=== PATIENT | female | born 1970 | race African-American/Black ===

== ENCOUNTER 2020-11-16 20:13 | IRF | payer BC, MEDICAID, SELFPAY ==
--- NOTE | ~2020-11-16 | US_ITS ---
EXAMINATION: US renal BI DATE: 11/27/2020 08:57 INDICATION: Acute renal failure. TECHNIQUE: Multiple ultrasound grayscale images of the kidneys were obtained. COMPARISON: CT abdomen and pelvis 03/07/2014 FINDINGS: The right kidney measures 12.8 x 6.3 x 5.6 cm. The left kidney measures 12.1 x 6.1 x 5.9 cm. The kidn eys demonstrate normal parenchymal echogenicity. There is no hydronephrosis. The bladder is normal. IMPRESSION: 1. Normal kidneys. No hydronephrosis. Reviewed, dictated and finalized at location A. GER FOOD
--- NOTE | ~2020-11-16 | XR_ITS ---
XR chest 1V portable DATE: 11/27/2020 08:32 INDICATION: Shortness of breath TECHNIQUE: Portable upright AP chest on November 27, 2020 at 0827 hours COMPARISON: AP and lateral chest on November 26, 2020 FINDINGS: There is suggestion patchy infiltrates overlying both upper and lower lung zones. No pleural effusion. No pneumothorax. Borderline or increased heart size. Surgical clips overlie the right upper quadrant, consistent with cholecystectomy. IMPRESSION: Bilateral upper and lower lung field infiltrates; diffusion diagnosis includes pneumonia and pulmonary edema. Reviewed, dictated and finalized at location A. ATE SECRETARY IMPRESSION: Bilateral upper and lower lung field infiltrates; diffusion diagnos is includes pneumonia and pulmonary edema.
--- NOTE | ~2020-11-16 | XR_ITS ---
XR chest 2V DATE: 11/26/2020 11:54 INDICATION: Fever, sore throat TECHNIQUE: AP and lateral views COMPARISON: 03/19/2014 2 view chest FINDINGS: Heart size is not optimally evaluated on AP projection but appears borderline.. No pulmonary infiltrate or consolidation, pulmonary vascular congestion, pleural effusion or pneumoth orax is detected. Status post cholecystectomy. IMPRESSION: No active pulmonary disease Reviewed, dictated and finalized at location A. RE WINDER HAND IMPRESSION: No active pulmonary disease
--- NOTE | 2020-11-16 19:49 | ADMGEN ---
This patient, Delisa Calderon, was admitted to [facility] Room 224-02 at 1912. Patient/family oriented to hospital policies and general routines including ID bracelet, bed and alarms, visiting hours, pain management, procedures, bathroom and other care routines, personal items, smoking policy, room service/diet, and visiting hours. Information on how to activate the Rapid Response Team has been discussed. Patient/Family are encouraged to report perceived risks to care and to ask questions if they do not understand what they are told or what they should do.
[2020-11-16 20:00] VITALS: BP 144/78; PULSE 97; RESP 18; TEMP 36.9; O2SAT 97; BMI 35.5
[2020-11-16] MEDS: oxyCODONE HCL (*CRX) 5 MG TAB IR 10 MG PO (21:56)
[2020-11-16 22:00] VITALS: BP 149/68; PULSE 97; RESP 16; TEMP 36.8; O2SAT 95
[2020-11-16 22:11] LABS: Glucose Point of Care 146 (65-105)
[2020-11-16] MEDS: MELATONIN 5 MG TABLET 10 MG PO (22:41)
[2020-11-16] MEDS: GABAPENTIN 300 MG CAPSULE 600 MG PO (22:41)
[2020-11-16 22:42] VITALS: PULSE 80
[2020-11-16] MEDS: AMITRIPTYLINE HCL 25 MG TABLET PO (22:42)
[2020-11-16] MEDS: carvediloL 6.25 MG TABLET PO (22:42)
[2020-11-16] MEDS: ATORVASTATIN 20 MG TABLET PO (22:42)
[2020-11-16] MEDS: INSULIN GLARGINE (*BKC) 100 UNITS/ML 10 UNITS SUB-Q (22:43)
[2020-11-16] MEDS: LINEZOLID 600 MG TABLET PO (22:43)
[2020-11-17] MEDS: oxyCODONE HCL (*CRX) 5 MG TAB IR 10 MG PO ×2 (05:22→15:29)
[2020-11-17 05:41] LABS: Basophils Percent Auto 0.1 % (0.2-1.2); Eosinophils Percent Auto 0.5 % (0-4.4); Hematocrit 28.1 % (37.0-47.0); Hemoglobin 9.1 g/dL (12.0-15.0); Immature Granulocyte Absolute 0.05 K/mm3 (0.00-0.031); Immature Granulocyte Percent A 0.6 % (0-0.5); Lymphocytes Absolute Auto 1.13 K/mm3 (0.9-3.2); Lymphocytes Percent Auto 13.3 % (18.3-44.2); Mean Corpuscular HGB Conc 32.4 g/dl (32-36); Mean Corpuscular Hemoglobin 28.6 pg (26-34); Mean Corpuscular Volume 88.4 fl (80-100); Mean Platelet Volume 8.8 fl (7.4-10.4); Monocytes Absolute Auto 1.1 K/mm3 (0.1-0.6); Monocytes Percent Auto 12.6 % (2.6-8.5); Neutrophils Absolute Auto 6.2 K/mm3 (1.3-6.7); Neutrophils Percent Auto 72.9 % (45.5-73.1); Platelet Count Result 342 k/mm3 (150-375); Red Blood Count 3.18 M/mm3 (4.2-5.4); Red Cell Distribution Width 15.2 % (11.5-14.5); White Blood Count 8.5 K/mm3 (4.5-10.0)
[2020-11-17 05:51] LABS: Anion Gap 5 mmol/L (8-16); Blood Urea Nitrogen 8 mg/dL (7-17); Calcium 8.3 mg/dL (8.4-10.2); Carbon Dioxide 29 mmol/L (22-30); Chloride 101 mmol/L (98-107); Estimated CRCL calculation 120 ml/min; Estimated Glomerular Filt Rate > 60; Glucose 111 mg/dL (65-105); Potassium 4.3 mmol/L (3.4-5.0); Sodium 135 mmol/L (137-145)
[2020-11-17 06:00] VITALS: BP 147/74; PULSE 93; RESP 18; TEMP 36.9; O2SAT 95
[2020-11-17 06:34] LABS: Glucose Point of Care 113 (65-105)
[2020-11-17] MEDS: INSULIN ASPART (*BKC) 100 UNITS/ML 15 UNITS SUB-Q (09:42)
[2020-11-17] MEDS: amLODIPine BESYLATE 5 MG TABLET 10 MG PO (09:43)
[2020-11-17 09:44] VITALS: PULSE 93
[2020-11-17] MEDS: GABAPENTIN 300 MG CAPSULE 600 MG PO ×4 (09:44→20:01)
[2020-11-17] MEDS: METOPROLOL SUCCINATE EXT REL 50 MG TABCR PO (09:44)
[2020-11-17] MEDS: LINEZOLID 600 MG TABLET PO ×2 (09:44→20:02)
[2020-11-17] MEDS: hydroCHLOROthiazide 12.5 MG CAPSULE PO (09:44)
[2020-11-17] MEDS: MAGNESIUM OXIDE 400 MG TABLET 800 MG PO ×2 (09:45→17:22)
[2020-11-17] MEDS: ISOSORBIDE MONONITRATE 60 MG TAB.ER.24H PO (09:45)
--- NOTE | 2020-11-17 09:45 | WPDREHABHP ---
H&P: HPI History of Present Illness Date/Time: 11/17/20 09:45 Chief Complaint: left [id number] amputation Narrative: HISTORY OF PRESENT ILLNESS:50 years old right-handed female has been admitted to rehab floor for the primary rehab impairment category of amputation of lower extremity with the etiological diagnosis of gangrene of toes of the left foot in addition to the comorbid conditions of 1. Hypertension 2. Diabetes mellitus 3. Obstructive sleep apnea 4. Peripheral arterial disease in addition to the history of right to left femoral to femoral artery bypass graft with 6mm ringed PTFE graft done in May 2020 5. Atrial fibrillation 6. Status post cardiac catheterization with stenting of the coronary artery 7. DVT 8. Hyperlipidemia 9. COPD 10. Rheumatoid arthritis 11. Bronchial asthma 12. Peripheral neuropathy 13. Gastritis and 14 cervical can. # patient was examined [id number] on November 17, 2024 at 9:00 a.m. # history and physical exam: the patient is 50 years old right-handed female with history of multiple medical problems as outlined above particularly hypertension, diabetes mellitus, obstructive sleep apnea, peripheral arterial disease, is status post right to left femoral to femoral bypass graft, cardiac dysrhythmia, with atrial fibrillation, cardiac catheterization and stenting, DVT, hyperlipidemia, myocardial infarction, COPD, rheumatoid arthritis, bronchial asthma, peripheral neuropathy, cervical cancer, TIA, and gastritis. She was discharge from the hospital on October 04, 2020 after diagnosis of acute hypoxemic respiratory failure, hypertensive urgency, migraine, and acute Frank's palsy that is both migraine and Frank's palsy had same time of onset. She was prescribed steroids and had significant uncontrolled blood sugar. The patient presented to emergency department of [facility] on October 08, 2020 with altered mental status. The patient stated she had been unwell and not acting right for 2 to 3 days previously and had to force her out of bed to come to the hospital. She was unable to stand due to pain and pressure in her left lower extremity. She also had continued to have migraines since her discharge on October 04, 2020 despite never having prior history of migraines. She was febrile at 102.6 and tachycardic at 140 beats per minute on arrival to the emergency room department. Ultrasound revealed karrie graft fluid in the right femoral anastomosis. CT of the abdomen and pelvis showed the femoral to femoral bypass graft with fluid stranding and locules of air About the right side of the graft. I small amount of stranding was seen in the left side of the graft as well. She was positive for Staph aureus non MRSA in 2 blood cultures. Infectious disease, vascular surgery, pulmonology, nephrology were consulted. The patient underwent a resection of the femoral to femoral bypass graft with bilateral femoral artery patch angioplasty on 10/17 2020. [id number] the patient was examined by vascular surgery and found to have break done of the left groin and hematoma, hematoma was evacuated by vascular surgery and a wound VAC was placed. On November 02, 2020 the patient was seen again by vascular surgeon and was noted to have foul-smelling wound and gangrenous left toes. She underwent surgical debridement of the left groin wound on the same day. The patient groin wound shows good granulation all necrotic tissue has been debrided. Wound VAC was changed on October 31, 2020. Patient ultimately underwent a left [id number] amputation on November 07, [address] Bush. Infectious Disease followed the patient throughout her stay and patient is currently on Rocephin that is 2 g and zyvox daily , present day 12 . Her leukocytosis has resolved. Nephrology following the patient for acute kidney injury and creatinine has down trended to current level of 0.9. Pulmonology was consulted for acute respiratory failure the patient r
[2020-11-17] MEDS: DIVALPROEX SODIUM ER 500 MG TAB.24H PO ×2 (09:46→17:24)
[2020-11-17 09:47] VITALS: PULSE 93
[2020-11-17] MEDS: lisinopriL 20 MG TABLET 40 MG PO (09:47)
[2020-11-17] MEDS: carvediloL 6.25 MG TABLET PO ×2 (09:47→20:02)
[2020-11-17] MEDS: FENOFIBRATE 160 MG TABLET PO (09:47)
[2020-11-17] MEDS: PANTOPRAZOLE 40 MG TABLET PO ×2 (09:47→17:23)
[2020-11-17] MEDS: ASPIRIN 81 MG ENTERIC TABLET PO (10:06)
--- NOTE | 2020-11-17 11:11 | PCOTNOTE ---
Initiated OT evaluation, but unable to complete entirely at this time as patient nauseated. Patient just had wound vac placed, dressings changed, and took morning medication. Patient requested to rest for a while. Will complete later.
[2020-11-17 11:56] LABS: Glucose Point of Care 64 (65-105)
[2020-11-17] MEDS: METOCLOPRAMIDE HCL INJ 10 MG/2 ML VIAL 5 MG IV PUSH ×2 (12:18→17:20)
[2020-11-17 14:00] VITALS: BP 142/72; PULSE 82; RESP 20; TEMP 35.9; O2SAT 100
[2020-11-17 14:03] VITALS: BMI 35.5
--- NOTE | 2020-11-17 14:26 | PCNSR ---
On 11/17/20, the student, Yuliya Mccarty, provided care and completed [facility] documentation on this patient. I have reviewed the student's documentation and agree with the findings.
[2020-11-17 17:11] LABS: Glucose Point of Care 155 (65-105)
[2020-11-17 20:02] VITALS: PULSE 88
[2020-11-17] MEDS: AMITRIPTYLINE HCL 25 MG TABLET PO (20:02)
[2020-11-17] MEDS: ATORVASTATIN 20 MG TABLET PO (20:02)
[2020-11-17] MEDS: INSULIN GLARGINE (*BKC) 100 UNITS/ML 10 UNITS SUB-Q (20:06)
[2020-11-17 20:10] LABS: Glucose Point of Care 217 (65-105)
[2020-11-17 22:00] VITALS: BP 166/80; PULSE 92; RESP 18; TEMP 36.6; O2SAT 100
[2020-11-18] VITALS (7 sets, daily range): BP systolic 122–142; BP diastolic 65–73; PULSE 84–91; RESP 18–20; TEMP 36.3–37.2; O2SAT 96–97; BMI 35.5
[2020-11-18] MEDS: oxyCODONE HCL (*CRX) 5 MG TAB IR 10 MG PO ×4 (03:04→23:17)
[2020-11-18 05:40] LABS: Glucose Point of Care 127 (65-105)
[2020-11-18] MEDS: METOCLOPRAMIDE HCL INJ 10 MG/2 ML VIAL 5 MG IV PUSH ×5 (06:10→23:18)
[2020-11-18 06:12] LABS: Magnesium 1.6 mg/dL (1.6-2.3)
[2020-11-18 06:34] LABS: Add Urine Microscopic? YES; Appearance Urine Cloudy (Clear); Bacteria Urine Trace /hpf; Bilirubin Urine Negative (Negative); Blood Urine 2+ (Negative); Color Urine Straw (Yellow); Glucose Urine UA Negative (Negative); Ketones Urine Negative (Negative); Leukocyte Esterase Ur Negative LEU/UL (Negative); Mucus Urine Rare /lpf; Nitrate Urine Negative (Negative); Protein Urine 1+ mg/dL (Negative); Specific Grav Ur 1.009 (1.001-1.035); Squamous Epithelial Cell Urine Rare /hpf (Few); Urobilinogen Urine Negative mg/dL (<2.0); WBC Urine 0-3 /hpf
[2020-11-18] MEDS: amLODIPine BESYLATE 5 MG TABLET 10 MG PO (09:09)
[2020-11-18] MEDS: MAGNESIUM OXIDE 400 MG TABLET 800 MG PO ×2 (09:09→17:29)
[2020-11-18] MEDS: GABAPENTIN 300 MG CAPSULE 600 MG PO ×4 (09:10→21:24)
[2020-11-18] MEDS: DOCUSATE SODIUM 100 MG CAPSULE PO ×2 (09:11→17:28)
[2020-11-18] MEDS: DIVALPROEX SODIUM ER 500 MG TAB.24H PO ×2 (09:11→17:29)
[2020-11-18] MEDS: LINEZOLID 600 MG TABLET PO ×2 (09:11→21:24)
[2020-11-18] MEDS: OMEGA 3 POLYUNSAT FATTY ACIDS 1 GM CAP PO (09:11)
[2020-11-18] MEDS: ASPIRIN 81 MG ENTERIC TABLET PO (09:11)
[2020-11-18] MEDS: FENOFIBRATE 160 MG TABLET PO (09:12)
[2020-11-18] MEDS: carvediloL 6.25 MG TABLET PO ×2 (09:12→21:22)
[2020-11-18] MEDS: hydroCHLOROthiazide 12.5 MG CAPSULE PO (09:12)
[2020-11-18] MEDS: PANTOPRAZOLE 40 MG TABLET PO ×2 (09:13→17:30)
[2020-11-18] MEDS: lisinopriL 20 MG TABLET 40 MG PO (09:13)
[2020-11-18] MEDS: ISOSORBIDE MONONITRATE 60 MG TAB.ER.24H PO (09:13)
[2020-11-18] MEDS: METOPROLOL SUCCINATE EXT REL 50 MG TABCR PO (09:13)
[2020-11-18 11:56] LABS: Glucose Point of Care 161 (65-105)
--- NOTE | 2020-11-18 12:17 | RPD ---
INDIVIDUALIZED PLAN OF CARE FOR Delisa Calderon Brief Synthesis of Pre-Admission Screen, Post-Admission Evaluation and Therapy Evaluations: The patient presents to rehab with Gangrene of toes of left foot. Comorbidities include Gangrene, non-healing wound of left groin, graft site infection, MARIAM, rhabdomyolysis, staphylococcus aureus bacteremia, hypoxia, diabetes with peripheral neuropathy, PVD, PARIS, PAD, HLD, a-fib, arrhythmia, COPD, rheumatoid arthritis, asthma, gastritis, migraine, altered mental status, pain, fevers, tachycardia, respiratory failure, leukocytosis, acute kidney injury, acute blood loss anemia. The patient requires physician services for medical oversight, management of post-op complications in the setting of present comorbidities, management of diabetes mellitus diagnosis, and wound care, infection control, and pain management. Post-op complications have included leukocytosis, post-operative pain, infection, nonhealing wound, hyperglycemia, MARIAM. The patient requires nursing services for anticoagulation therapy, diabetes training, DVT prophylactics, IV administration, infection protection, medication management and education, pressure relief, and wound care. Deficits include: ADLs, Balance, Endurance, Family Training/Education, Mobility, Pain Management, ROM, Safety, Strength, Transfers. Computer Security Coordinator/Case Management for: Discharge Planning and Patient/Family Counseling Physical Therapy: 5 days per week for 90 minutes. Treatments may include: Therapeutic Exercise, Gait Training, Neuromuscular Re-education, Transfer Training, Community Reintegration, Bed Mobility, Patient/Family Education, Wheelchair Mobility Group Therapy/Concurrent Therapy Rationales: -Improve attention span during functional activities in a distracted environment. -Enhance problem solving and/or adequate judgment skills during functional activities in a distracted environment. -Promote increased safety awareness in a distracted environment to reduce fall risk with functional tasks, transfers, and ambulation to allow a more safe, self-sufficient return to the home environment. -Improve dynamic balance skills to promote safety and independence with functional activities in a distracted environment for maximum gain. Occupational Therapy: 5 days per week for 90 minutes. Treatments may include: Therapeutic Exercise, Therapeutic Activity, Cognitive Training, Self-Care Transfer Training, Community Reintegration, Home Management, Patient/Family Education, Wheelchair Mobility Training, Energy Conservation Training Group Therapy/Concurrent Therapy Rationales: -Allow therapist to observe and teach generalization and carry-over of skills learned in individual therapy. -Enhance problem solving and sequencing skills during therapeutic activities in a distracted environment. -Promote increased safety awareness in a realistic setting to reduce fall risk with functional tasks due to visual and verbal distractions. -Increase functional level with ADLs, ADL transfers and use of adaptive equipment through therapeutic activities with others while promoting safety to allow a more safe, self-sufficient return home. Group Therapy/Concurrent Therapy - Rationale: -Allow therapist to observe and teach generalization and carry-over of skills learned in individual therapy. -Improve comprehension skills with complex or abstract ideas through discussion in a realistic setting. -Enhance problem solving skills with complex issues during activities in a distracted environment. -Promote increased memory skills and concentration in a distracted environment for a safe transition home. -Improve attention and focus with language/communication skills in a realistic and supportive therapeutic setting. -Allow for practice of expression of basic needs and ideas through functional activities with others. Medical Prognosis: Good Anticipated Length of Stay: 12 days Rehab Goals: Eating Goal: 06-Ind
--- NOTE | 2020-11-18 12:17 | PCNFU ---
Nutrition Follow-Up Complete: Inadequate oral intake related to constant nausea as evidenced by consumption of 25% or less of meals. Goal: Patient to meet estimated nutritional needs. Patient ate 100% of breakfast this morning. She is still working towards goal. Pt current nutrition is Diabetic Consistent Carbohydrate Diet. Last recorded weight is 103 kg. Stable weight since admission. Bowel Motility: + BM 11/18 Labs Reviewed: Hgb 12.6, Hct 38.5, BUN 25 Meds Noted: Albuterol, Lorazepam, Norvasc, Novolog, Lipitor, Lantus, Coreg, Imdur, Colace, Prinivil, Lovaza, Protonix Additional Notes: Spoke with patient today. She is doing significantly better than yesterday. She was able to eat 100% of her breakfast this morning and on her way to eating 100% of her lunch as well. She was given Reglan to help with nausea and it is has worked wonders for her. She wants to try Glucerna with lunch providing an additional 220 calories and 10 grams of protein to help meet her nutritional needs when she has a decreased appetite. Monitor patient's labs, medications, weight, and oral intake every 5 days.
--- NOTE | 2020-11-18 12:48 | PCNSR ---
On 11/18/20, the student, Yuliya Mccarty, provided care and completed [facility] documentation on this patient. I have reviewed the student's documentation and agree with the findings.
[2020-11-18 16:53] LABS: Glucose Point of Care 165 (65-105)
[2020-11-18] MEDS: INSULIN ASPART (*BKC) 100 UNITS/ML SUB-Q (17:26)
[2020-11-18] MEDS: ATORVASTATIN 20 MG TABLET PO (21:23)
[2020-11-18] MEDS: AMITRIPTYLINE HCL 25 MG TABLET PO (21:24)
[2020-11-18] MEDS: INSULIN GLARGINE (*BKC) 100 UNITS/ML 10 UNITS SUB-Q (21:27)
[2020-11-18 21:45] LABS: Glucose Point of Care 152 (65-105)
[2020-11-19] VITALS (7 sets, daily range): BP systolic 106–122; BP diastolic 65–72; PULSE 82–87; RESP 18; TEMP 36.1–36.9; O2SAT 96–98
[2020-11-19] MEDS: METOCLOPRAMIDE HCL INJ 10 MG/2 ML VIAL 5 MG IV PUSH ×3 (06:22→17:01)
[2020-11-19 07:02] LABS: Glucose Point of Care 138 (65-105)
[2020-11-19] MEDS: INSULIN ASPART (*BKC) 100 UNITS/ML SUB-Q ×3 (09:01→16:45)
[2020-11-19] MEDS: amLODIPine BESYLATE 5 MG TABLET 10 MG PO (09:04)
[2020-11-19] MEDS: ASPIRIN 81 MG ENTERIC TABLET PO (09:05)
[2020-11-19] MEDS: carvediloL 6.25 MG TABLET PO ×2 (09:05→20:09)
[2020-11-19] MEDS: DOCUSATE SODIUM 100 MG CAPSULE PO (09:06)
[2020-11-19] MEDS: DIVALPROEX SODIUM ER 500 MG TAB.24H PO ×2 (09:06→16:51)
[2020-11-19] MEDS: FENOFIBRATE 160 MG TABLET PO (09:06)
[2020-11-19] MEDS: GABAPENTIN 300 MG CAPSULE 600 MG PO ×4 (09:06→20:03)
[2020-11-19] MEDS: hydroCHLOROthiazide 12.5 MG CAPSULE PO (09:07)
[2020-11-19] MEDS: MAGNESIUM OXIDE 400 MG TABLET 800 MG PO ×2 (09:07→16:50)
[2020-11-19] MEDS: lisinopriL 20 MG TABLET 40 MG PO (09:07)
[2020-11-19] MEDS: ISOSORBIDE MONONITRATE 60 MG TAB.ER.24H PO (09:07)
[2020-11-19] MEDS: METOPROLOL SUCCINATE EXT REL 50 MG TABCR PO (09:07)
[2020-11-19] MEDS: LINEZOLID 600 MG TABLET PO ×2 (09:07→20:05)
[2020-11-19] MEDS: OMEGA 3 POLYUNSAT FATTY ACIDS 1 GM CAP PO (09:08)
[2020-11-19] MEDS: PANTOPRAZOLE 40 MG TABLET PO ×2 (09:08→16:50)
[2020-11-19] MEDS: oxyCODONE HCL (*CRX) 5 MG TAB IR 10 MG PO ×2 (09:27→16:56)
[2020-11-19 12:02] LABS: Glucose Point of Care 133 (65-105)
--- NOTE | 2020-11-19 14:33 | WPDNEURORHBP ---
Subjective Date/time seen: 11/19/20 14:33 50 years old right-handed female with left lower extremity amputation for the gangrene of the left foot in addition to hypertension, diabetes mellitus, obstructive sleep apnea, peripheral arterial disease, and history of right to left femoral to femoral artery bypass graft, atrial fibrillation,, history of coronary artery catheterization and stenting , COPD , rheumatoid arthritis bronchial asthma, peripheral neuropathy and gastritis remains actively involved in the therapy much more pleasant now and more cooperative and more understanding and definitely in not pain, blood sugar 133, remains afebrile pulse 84 respiration 18 pulse ox 96 on room air Review of Systems Review of Systems: All systems reviewed & are unremarkable except as noted in HPI and below Exam Const: General: cooperative, comfortable and no acute distress Nutritional Appearance: overweight Orientation/consciousness: patient oriented x3 Limitations: physical limitations HENMT: Head: normocephalic Ears: hearing grossly normal bilaterally General nose exam: Normal external nose present and No nasal discharge present Face and sinus: normal facial exam Eyes: General: appearance normal, both eyes and all related structures Neck: Neck: full ROM and no lymphadenopathy Resp: Effort & Inspection: normal respiratory effort Auscultation: clear to auscultation bilaterally Cardio: Jugular venous distension: no JVD Rate: regular rate Rhythm: regular rhythm GI: Auscultation: normal bowel sounds Skin: General skin exam: no rashes or lesions noted Wounds: wounds noted Neuro: General: patient oriented x3 Cranial nerves: Yes CN's II-XII intact bilaterally Cognition (Neuro): normal cognition Gait exam (Neuro): Assisted gait required Motor exam (neuro): 5/5 motor strength present throughout and Abnormal motor strength present ( left lower extremity) Sensory Exam: Sensory deficit (Neuro) Deep tendon reflexes (DTR's): Right triceps reflex intensity grade: 1+, Left triceps reflex intensity grade: 1+, Rt Biceps (C5, C6): 1+, Left biceps reflex intensity grade: 1+, Right brachioradialis reflex intensity grade: 1+, Left brachioradialis reflex intensity grade: 1+, Right patellar reflex intensity grade: 1+ and Left patellar reflex intensity grade: 1+ Objective Data Vital Signs Vital Signs: Vital Signs - 24 hr 11/18/20 20:00 11/18/20 21:22 11/18/20 22:00 Temperature 36.9 C Pulse Rate 84 84 88 Respiratory Rate 20 18 Blood Pressure 142/71 H Pulse Oximetry 97 96 11/19/20 05:04 11/19/20 08:00 11/19/20 09:05 Temperature 36.3 C L Pulse Rate 84 84 84 Respiratory Rate 18 18 Blood Pressure 122/72 Pulse Oximetry 96 96 11/19/20 09:07 Temperature Pulse Rate 84 Respiratory Rate Blood Pressure Pulse Oximetry Intake/Output Intake/Output: Intake & Output 11/16/20 11/17/20 11/18/20 11/19/20 23:59 23:59 23:59 23:59 Intake Total 1440 1240 870 Output Total 2550 1300 1100 [facility] -1110 -60 -230 Meds/Results Medications: Active Medications Generic Name Dose Route Start Last Admin Trade Name Freq PRN Reason Stop Dose Admin Albuterol 1 puff 11/17/20 01:51 Albuterol Sulfate (*Sp) Aerosol 1 Puff INHALATION Q4HRT PRN Shortness Of Breath Albuterol/Ipratropium 1 puff 11/17/20 04:40 Albuterol/Ipratropium (*Sp) 4 Gm Respimat INHALATION QIDRT PRN Shortness Of Breath Amitriptyline HCl 25 mg 11/16/20 21:40 11/18/20 21:24 Amitriptyline Hcl 25 Mg Tablet PO 25 mg HS YUKI Administration Amlodipine Besylate 10 mg 11/17/20 09:00 11/19/20 09:04 Amlodipine Besylate 5 Mg Tablet PO 10 mg DAILY YUKI Administration Aspirin 81 mg 11/17/20 09:00 11/19/20 09:05 Aspirin 81 Mg Enteric Tablet PO 81 mg DAILY YUKI Administration Atorvastatin Calcium 20 mg 11/16/20 21:40 11/18/20 21:23 Atorvastatin 20 Mg Tablet PO 20 mg HS YUKI Administration Carvedilol 6.2
[2020-11-19 16:46] LABS: Glucose Point of Care 115 (65-105)
[2020-11-19] MEDS: ATORVASTATIN 20 MG TABLET PO (20:04)
[2020-11-19] MEDS: AMITRIPTYLINE HCL 25 MG TABLET PO (20:04)
[2020-11-19] MEDS: INSULIN GLARGINE (*BKC) 100 UNITS/ML 10 UNITS SUB-Q (20:10)
[2020-11-19 21:44] LABS: Glucose Point of Care 118 (65-105)
[2020-11-20] MEDS: METOCLOPRAMIDE HCL INJ 10 MG/2 ML VIAL 5 MG IV PUSH ×4 (00:15→17:51)
[2020-11-20 04:37] VITALS: BP 126/70; PULSE 91; RESP 18; TEMP 36.5; O2SAT 97
[2020-11-20 06:33] LABS: Glucose Point of Care 110 (65-105)
[2020-11-20] MEDS: oxyCODONE HCL (*CRX) 5 MG TAB IR 10 MG PO ×2 (06:54→16:19)
[2020-11-20] MEDS: amLODIPine BESYLATE 5 MG TABLET 10 MG PO (08:45)
[2020-11-20] MEDS: INSULIN ASPART (*BKC) 100 UNITS/ML SUB-Q ×3 (08:45→17:47)
[2020-11-20] MEDS: ASPIRIN 81 MG ENTERIC TABLET PO (08:46)
[2020-11-20 08:50] VITALS: PULSE 91
[2020-11-20] MEDS: carvediloL 6.25 MG TABLET PO ×2 (08:50→20:45)
[2020-11-20] MEDS: GABAPENTIN 300 MG CAPSULE 600 MG PO ×4 (08:52→20:45)
[2020-11-20] MEDS: DIVALPROEX SODIUM ER 500 MG TAB.24H PO ×2 (08:52→17:49)
[2020-11-20] MEDS: FENOFIBRATE 160 MG TABLET PO (08:52)
[2020-11-20] MEDS: MAGNESIUM OXIDE 400 MG TABLET 800 MG PO ×2 (08:53→17:50)
[2020-11-20] MEDS: hydroCHLOROthiazide 12.5 MG CAPSULE PO (08:53)
[2020-11-20] MEDS: LINEZOLID 600 MG TABLET PO ×2 (08:53→20:45)
[2020-11-20] MEDS: ISOSORBIDE MONONITRATE 60 MG TAB.ER.24H PO (08:53)
[2020-11-20] MEDS: lisinopriL 20 MG TABLET 40 MG PO (08:53)
[2020-11-20 08:54] VITALS: PULSE 91
[2020-11-20] MEDS: METOPROLOL SUCCINATE EXT REL 50 MG TABCR PO (08:54)
[2020-11-20] MEDS: PANTOPRAZOLE 40 MG TABLET PO ×2 (08:54→17:52)
[2020-11-20] MEDS: OMEGA 3 POLYUNSAT FATTY ACIDS 1 GM CAP PO (08:54)
[2020-11-20 13:43] LABS: Glucose Point of Care 101 (65-105)
[2020-11-20 14:00] VITALS: BP 116/64; PULSE 94; RESP 20; TEMP 36.5; O2SAT 95
[2020-11-20 17:20] LABS: Glucose Point of Care 145 (65-105)
[2020-11-20 20:45] VITALS: PULSE 88
[2020-11-20] MEDS: AMITRIPTYLINE HCL 25 MG TABLET PO (20:45)
[2020-11-20] MEDS: INSULIN GLARGINE (*BKC) 100 UNITS/ML 10 UNITS SUB-Q (20:46)
[2020-11-20] MEDS: ATORVASTATIN 20 MG TABLET PO (20:46)
[2020-11-20 20:55] LABS: Glucose Point of Care 125 (65-105)
[2020-11-20 21:51] VITALS: BP 151/76; PULSE 92; RESP 18; TEMP 36.5; O2SAT 98
[2020-11-21] MEDS: METOCLOPRAMIDE HCL INJ 10 MG/2 ML VIAL 5 MG IV PUSH ×5 (00:01→23:31)
[2020-11-21 06:00] VITALS: BP 124/59; PULSE 91; RESP 16; TEMP 36.2; O2SAT 94
[2020-11-21 06:03] LABS: Glucose Point of Care 141 (65-105)
[2020-11-21 08:00] VITALS: PULSE 91; RESP 16; O2SAT 94
[2020-11-21] MEDS: amLODIPine BESYLATE 5 MG TABLET 10 MG PO (08:18)
[2020-11-21] MEDS: ASPIRIN 81 MG ENTERIC TABLET PO (08:18)
[2020-11-21 08:19] VITALS: PULSE 91
[2020-11-21] MEDS: METOPROLOL SUCCINATE EXT REL 50 MG TABCR PO (08:19)
[2020-11-21] MEDS: MAGNESIUM OXIDE 400 MG TABLET 800 MG PO ×2 (08:19→16:16)
[2020-11-21] MEDS: carvediloL 6.25 MG TABLET PO ×2 (08:19→21:55)
[2020-11-21] MEDS: LINEZOLID 600 MG TABLET PO ×2 (08:19→21:57)
[2020-11-21] MEDS: FENOFIBRATE 160 MG TABLET PO (08:20)
[2020-11-21] MEDS: GABAPENTIN 300 MG CAPSULE 600 MG PO ×4 (08:20→21:56)
[2020-11-21] MEDS: hydroCHLOROthiazide 12.5 MG CAPSULE PO (08:20)
[2020-11-21] MEDS: DIVALPROEX SODIUM ER 500 MG TAB.24H PO ×2 (08:21→16:16)
[2020-11-21] MEDS: lisinopriL 20 MG TABLET 40 MG PO (08:21)
[2020-11-21] MEDS: PANTOPRAZOLE 40 MG TABLET PO ×2 (08:21→16:17)
[2020-11-21] MEDS: ISOSORBIDE MONONITRATE 60 MG TAB.ER.24H PO (08:21)
[2020-11-21] MEDS: OMEGA 3 POLYUNSAT FATTY ACIDS 1 GM CAP PO (08:21)
[2020-11-21] MEDS: INSULIN ASPART (*BKC) 100 UNITS/ML SUB-Q ×3 (08:23→17:18)
[2020-11-21] MEDS: oxyCODONE HCL (*CRX) 5 MG TAB IR 10 MG PO ×3 (08:28→22:12)
--- NOTE | 2020-11-21 09:53 | WPDNEURORHBP ---
Subjective Date/time seen: 11/21/20 09:53 50 years old status post left below-knee amputation in addition to hypertension, diabetes mellitus, obstructive sleep apnea, peripheral arterial disease, atrial fibrillation, and left femoral to femoral artery bypass graft prior to this particular incident has remained afebrile temp 36.2? pulse 91 respirations 16 pulse ox 94 blood pressure 124/59, no changes in the medication, this morning Chika has been read distressed and is definitely looking better Review of Systems Review of Systems: All systems reviewed & are unremarkable except as noted in HPI and below Exam Const: General: cooperative and comfortable Nutritional Appearance: overweight Orientation/consciousness: patient oriented x3 Limitations: physical limitations HENMT: Ears: hearing grossly normal bilaterally General nose exam: Normal external nose present and No nasal discharge present Face and sinus: normal facial exam Mouth: Yes Normal oral and palatal mucosa present Eyes: General: appearance normal, both eyes and all related structures Neck: Neck: full ROM Resp: Effort & Inspection: normal respiratory effort Auscultation: clear to auscultation bilaterally Cardio: Jugular venous distension: no JVD Rhythm: abnormal rhythm GI: Auscultation: normal bowel sounds Skin: General skin exam: no rashes or lesions noted Wounds: wounds noted ( we dressed this morning looks better) Neuro: General: patient oriented x3 Cranial nerves: Yes CN's II-XII intact bilaterally Speech: normal speech Motor exam (neuro): 5/5 motor strength present throughout Extrem: General: full ROM Left lower extremity: full ROM Objective Data Vital Signs Vital Signs: Vital Signs - 24 hr 11/20/20 14:00 11/20/20 20:45 11/20/20 21:51 Temperature 36.5 C 36.5 C Pulse Rate 94 88 92 Respiratory Rate 20 18 Blood Pressure 116/64 151/76 H Pulse Oximetry 95 98 11/21/20 06:00 11/21/20 08:19 Temperature 36.2 C L Pulse Rate 91 91 Respiratory Rate 16 Blood Pressure 124/59 L Pulse Oximetry 94 Intake/Output Intake/Output: Intake & Output 11/18/20 11/19/20 11/20/20 11/21/20 23:59 23:59 23:59 23:59 Intake Total 1240 1930 3310 480 Output Total 1300 1100 2425 1500 Balance -60 830 885 -1020 Meds/Results Medications: Active Medications Generic Name Dose Route Start Last Admin Trade Name Freq PRN Reason Stop Dose Admin Albuterol 1 puff 11/17/20 01:51 Albuterol Sulfate (*Sp) Aerosol 1 Puff INHALATION Q4HRT PRN Shortness Of Breath Albuterol/Ipratropium 1 puff 11/17/20 04:40 Albuterol/Ipratropium (*Sp) 4 Gm Respimat INHALATION QIDRT PRN Shortness Of Breath Amitriptyline HCl 25 mg 11/16/20 21:40 11/20/20 20:45 Amitriptyline Hcl 25 Mg Tablet PO 25 mg HS YUKI Administration Amlodipine Besylate 10 mg 11/17/20 09:00 11/21/20 08:18 Amlodipine Besylate 5 Mg Tablet PO 10 mg DAILY YUKI Administration Aspirin 81 mg 11/17/20 09:00 11/21/20 08:18 Aspirin 81 Mg Enteric Tablet PO 81 mg DAILY YUKI Administration Atorvastatin Calcium 20 mg 11/16/20 21:40 11/20/20 20:46 Atorvastatin 20 Mg Tablet PO 20 mg HS YUKI Administration Carvedilol 6.25 mg 11/16/20 21:40 11/21/20 08:19 Carvedilol 6.25 Mg Tablet PO 6.25 mg Q12HR YUKI Administration Dextrose 12.5 gm 11/16/20 21:46 Dextrose 50% 25 Gm/50 Ml Syringe IV PUSH PRN PRN Hypoglycemia Protocol Diltiazem HCl 240 mg 11/17/20 09:00 11/21/20 08:20 Diltiazem Hcl Cd 240 Mg Cap.Er.24h PO 240 mg DAILY YUKI Administration Divalproex Sodium 500 mg 11/16/20 21:40 11/21/20 08:21 Divalproex Sodium Er 500 Mg Tab.24h PO 500 mg BID YUKI Administration Docusate Sodium 100 mg 11/19/20 11:56 Docusate Sodium 100 Mg Capsule PO PRN PRN CONSTIPATION Ergocalciferol 50,000 unit 11/23/20 09:00 Ergocalciferol 50,000 Unit Capsule PO We@0900 [facility] Fenofibrate 160 mg 02
[2020-11-21 12:19] LABS: Glucose Point of Care 112 (65-105)
[2020-11-21 14:00] VITALS: BP 106/59; PULSE 87; RESP 20; TEMP 36.6; O2SAT 97
[2020-11-21 16:31] LABS: Glucose Point of Care 99 (65-105)
[2020-11-21 21:29] VITALS: BP 117/70; PULSE 85; RESP 20; TEMP 36.8; O2SAT 96
[2020-11-21 21:55] VITALS: PULSE 85
[2020-11-21] MEDS: AMITRIPTYLINE HCL 25 MG TABLET PO (21:55)
[2020-11-21] MEDS: ATORVASTATIN 20 MG TABLET PO (21:55)
[2020-11-21] MEDS: INSULIN GLARGINE (*BKC) 100 UNITS/ML 10 UNITS SUB-Q (22:03)
[2020-11-21 22:28] LABS: Glucose Point of Care 148 (65-105)
[2020-11-21] MEDS: MELATONIN 5 MG TABLET 10 MG PO (23:40)
[2020-11-22 05:37] VITALS: BP 109/55; PULSE 88; RESP 20; TEMP 36.4; O2SAT 97
[2020-11-22] MEDS: METOCLOPRAMIDE HCL INJ 10 MG/2 ML VIAL 5 MG IV PUSH ×4 (05:39→21:20)
[2020-11-22 06:46] LABS: Glucose Point of Care 135 (65-105)
[2020-11-22 07:48] VITALS: PULSE 88
[2020-11-22] MEDS: METOPROLOL SUCCINATE EXT REL 50 MG TABCR PO (07:48)
[2020-11-22] MEDS: carvediloL 6.25 MG TABLET PO ×2 (07:48→21:19)
[2020-11-22] MEDS: amLODIPine BESYLATE 5 MG TABLET 10 MG PO (07:48)
[2020-11-22] MEDS: PANTOPRAZOLE 40 MG TABLET PO ×2 (07:48→16:55)
[2020-11-22] MEDS: lisinopriL 20 MG TABLET 40 MG PO (07:49)
[2020-11-22] MEDS: hydroCHLOROthiazide 12.5 MG CAPSULE PO (07:49)
[2020-11-22] MEDS: MAGNESIUM OXIDE 400 MG TABLET 800 MG PO ×2 (07:49→16:55)
[2020-11-22] MEDS: OMEGA 3 POLYUNSAT FATTY ACIDS 1 GM CAP PO (07:49)
[2020-11-22] MEDS: GABAPENTIN 300 MG CAPSULE 600 MG PO ×4 (07:49→21:19)
[2020-11-22] MEDS: ISOSORBIDE MONONITRATE 60 MG TAB.ER.24H PO (07:50)
[2020-11-22] MEDS: LINEZOLID 600 MG TABLET PO ×2 (07:50→21:19)
[2020-11-22] MEDS: ASPIRIN 81 MG ENTERIC TABLET PO (07:50)
[2020-11-22] MEDS: FENOFIBRATE 160 MG TABLET PO (07:50)
[2020-11-22] MEDS: DIVALPROEX SODIUM ER 500 MG TAB.24H PO ×2 (07:50→16:54)
[2020-11-22] MEDS: INSULIN ASPART (*BKC) 100 UNITS/ML SUB-Q ×3 (07:54→17:28)
[2020-11-22] MEDS: oxyCODONE HCL (*CRX) 5 MG TAB IR 10 MG PO ×2 (10:16→21:21)
[2020-11-22 12:38] LABS: Glucose Point of Care 100 (65-105)
--- NOTE | 2020-11-22 13:26 | WPDNEURORHBP ---
Subjective Date/time seen: 11/22/20 13:26 50 years old status post left spmnz-[id number] amputation in addition to the ongoing diagnosis of hypertension, diabetes mellitus, obstructive sleep apnea, and peripheral artery disease, atrial fibrillation, left femoral to femoral artery bypass graft prior to this particular incident. She remains involved in the physical therapy and occupy family's billing the ramp for the time being to her to return home wound is definitely improving so has the stump she will be discharged with specific instructions for the Home Health requiring physical therapy occupational therapy and nurses visit Review of Systems Review of Systems: All systems reviewed & are unremarkable except as noted in HPI and below Exam Const: General: cooperative, healthy appearing, comfortable and no acute distress Nutritional Appearance: overweight Orientation/consciousness: oriented to person, oriented to place and patient oriented x3 Eyes: General: appearance normal, both eyes and all related structures Neck: Neck: full ROM Resp: Effort & Inspection: normal respiratory effort and able to speak in complete sentences Auscultation: clear to auscultation bilaterally Cardio: Rate: regular rate Skin: General skin exam: no rashes or lesions noted Neuro: General: patient oriented x3 Cranial nerves: Yes CN's II-XII intact bilaterally Cognition (Neuro): normal cognition Gait exam (Neuro): Assisted gait required Motor exam (neuro): 5/5 motor strength present throughout Sensory Exam: Sensory deficit (Neuro) Plantar Reflex Responses: downgoing: right Psych: Appearance: grossly normal Objective Data Vital Signs Vital Signs: Vital Signs - 24 hr 11/21/20 14:00 11/21/20 21:29 11/21/20 21:55 Temperature 36.6 C 36.8 C Pulse Rate 87 85 85 Respiratory Rate 20 20 Blood Pressure 106/59 L 117/70 Pulse Oximetry 97 96 11/22/20 05:37 11/22/20 07:48 Temperature 36.4 C L Pulse Rate 88 88 Respiratory Rate 20 Blood Pressure 109/55 L Pulse Oximetry 97 Intake/Output Intake/Output: Intake & Output 11/19/20 11/20/20 11/21/20 11/22/20 23:59 23:59 23:59 23:59 Intake Total 1930 3310 1510 600 Output Total 1100 2425 2000 Balance 830 885 -490 600 Meds/Results Medications: Active Medications Generic Name Dose Route Start Last Admin Trade Name Freq PRN Reason Stop Dose Admin Albuterol 1 puff 11/17/20 01:51 Albuterol Sulfate (*Sp) Aerosol 1 Puff INHALATION Q4HRT PRN Shortness Of Breath Albuterol/Ipratropium 1 puff 11/17/20 04:40 Albuterol/Ipratropium (*Sp) 4 Gm Respimat INHALATION QIDRT PRN Shortness Of Breath Amitriptyline HCl 25 mg 11/16/20 21:40 11/21/20 21:55 Amitriptyline Hcl 25 Mg Tablet PO 25 mg HS YUKI Administration Amlodipine Besylate 10 mg 11/17/20 09:00 11/22/20 07:48 Amlodipine Besylate 5 Mg Tablet PO 10 mg DAILY YUKI Administration Aspirin 81 mg 11/17/20 09:00 11/22/20 07:50 Aspirin 81 Mg Enteric Tablet PO 81 mg DAILY YUKI Administration Atorvastatin Calcium 20 mg 11/16/20 21:40 11/21/20 21:55 Atorvastatin 20 Mg Tablet PO 20 mg HS YUKI Administration Carvedilol 6.25 mg 11/16/20 21:40 11/22/20 07:48 Carvedilol 6.25 Mg Tablet PO 6.25 mg Q12HR YUKI Administration Dextrose 12.5 gm 11/16/20 21:46 Dextrose 50% 25 Gm/50 Ml Syringe IV PUSH PRN PRN Hypoglycemia Protocol Diltiazem HCl 240 mg 11/17/20 09:00 11/22/20 07:49 Diltiazem Hcl Cd 240 Mg Cap.Er.24h PO 240 mg DAILY YUKI Administration Divalproex Sodium 500 mg 11/16/20 21:40 11/22/20 07:50 Divalproex Sodium Er 500 Mg Tab.24h PO 500 mg BID YUKI Administration Docusate Sodium 100 mg 11/19/20 11:56 Docusate Sodium 100 Mg Capsule PO PRN PRN CONSTIPATION Ergocalciferol 50,000 unit 11/23/20 09:00 Ergocalciferol 50,000 Unit Capsule PO We@0900 [facility] Fenofibrate 160 mg 11/17/20 09:00 11/22/20 07:50
[2020-11-22 14:00] VITALS: BP 107/59; PULSE 86; RESP 18; TEMP 36.1; O2SAT 96
--- NOTE | 2020-11-22 15:39 | PCOTNOTE ---
It is recommended that this patient, Delisa Calderon, have a drop-arm commode and tub transfer bench for home use. This patient is currently non-ambulatory and requires use of a sliding board to transfer due to a left below-knee amputation and non-weightbearing left lower extremity. The patient also has further impairments of right lower extremity weakness secondary to a femoral to femoral artery bypass graft and decreased endurance and balance. A drop-arm commode and tub transfer bench are both recommended for home use in order to provide optimal safety and independence with toileting tasks and toilet and tub/shower transfers. The drop-arm commode and tub transfer bench will resolve patient's mobility limitations and will provide safe access to a toilet and tub/shower within her home. I agree with and certify that the above recommendation is medically necessary. Referring Physician Date
[2020-11-22 16:55] LABS: Glucose Point of Care 91 (65-105)
[2020-11-22 21:19] VITALS: PULSE 86
[2020-11-22] MEDS: ATORVASTATIN 20 MG TABLET PO (21:19)
[2020-11-22] MEDS: AMITRIPTYLINE HCL 25 MG TABLET PO (21:19)
[2020-11-22] MEDS: INSULIN GLARGINE (*BKC) 100 UNITS/ML 10 UNITS SUB-Q (21:24)
[2020-11-22 21:38] LABS: Glucose Point of Care 92 (65-105)
[2020-11-22 22:00] VITALS: BP 144/71; PULSE 92; RESP 18; TEMP 36.7; O2SAT 97
[2020-11-23] VITALS (7 sets, daily range): BP systolic 115–119; BP diastolic 59–64; PULSE 70–87; RESP 16–18; TEMP 36.3–36.7; O2SAT 94–96
[2020-11-23] MEDS: METOCLOPRAMIDE HCL INJ 10 MG/2 ML VIAL 5 MG IV PUSH ×4 (06:26→21:16)
[2020-11-23 06:30] LABS: Glucose Point of Care 88 (65-105)
[2020-11-23] MEDS: INSULIN ASPART (*BKC) 100 UNITS/ML SUB-Q ×3 (08:38→17:01)
[2020-11-23] MEDS: ISOSORBIDE MONONITRATE 60 MG TAB.ER.24H PO (08:40)
[2020-11-23] MEDS: lisinopriL 20 MG TABLET 40 MG PO (08:40)
[2020-11-23] MEDS: GABAPENTIN 300 MG CAPSULE 600 MG PO ×4 (08:40→21:16)
[2020-11-23] MEDS: FENOFIBRATE 160 MG TABLET PO (08:40)
[2020-11-23] MEDS: ASPIRIN 81 MG ENTERIC TABLET PO (08:40)
[2020-11-23] MEDS: PANTOPRAZOLE 40 MG TABLET PO ×2 (08:41→17:00)
[2020-11-23] MEDS: METOPROLOL SUCCINATE EXT REL 50 MG TABCR PO (08:41)
[2020-11-23] MEDS: OMEGA 3 POLYUNSAT FATTY ACIDS 1 GM CAP PO (08:41)
[2020-11-23] MEDS: MAGNESIUM OXIDE 400 MG TABLET 800 MG PO ×2 (08:41→16:59)
[2020-11-23] MEDS: ERGOCALCIFEROL 50,000 UNIT CAPSULE 50000 UNITS PO (08:41)
[2020-11-23] MEDS: DIVALPROEX SODIUM ER 500 MG TAB.24H PO ×2 (08:41→16:59)
[2020-11-23] MEDS: amLODIPine BESYLATE 5 MG TABLET 10 MG PO (08:41)
[2020-11-23] MEDS: carvediloL 6.25 MG TABLET PO ×2 (08:42→21:15)
[2020-11-23] MEDS: hydroCHLOROthiazide 12.5 MG CAPSULE PO (08:42)
[2020-11-23] MEDS: LINEZOLID 600 MG TABLET PO ×2 (08:42→21:16)
[2020-11-23] MEDS: oxyCODONE HCL (*CRX) 5 MG TAB IR 10 MG PO ×3 (08:47→21:26)
[2020-11-23 12:03] LABS: Glucose Point of Care 91 (65-105)
--- NOTE | 2020-11-23 13:12 | PCDIET ---
Nutrition Follow-Up Complete: Nutrition Diagnosis: Inadequate oral intake related to constant nausea as evidenced by consumption of 25% or less of meals. Nutrition Goal: Patient to meet estimated nutritional needs. Goal in progress. Patient consuming 75-100% of most meals on diabetic diet. c/o GI distress with Glucerna but would be willing to try Kye to promote healing. Recommend sending twice daily for 80kcal and 14g amino acid each. Last recorded weight is 103 kg. Recommend obtaining new weight. Bowel Motility: Last documented BM on 11/21/20. Labs Reviewed: Glu (88) Meds Noted: Albuterol, Combivent, Lisinopril, Mag-Ox, Elavil, Norvasc, Colace, Lovaza, Reglan, Lipitor, Coreg, Drisdol, Lantus, Hydrochlorothiazide, Novolog, Fenofibrate Additional Notes: Left groin with wound vac. Left leg with dressing. Will continue to monitor with same goal. Nutrition Monitoring and Evaluation: Follow up in 5 days.
--- NOTE | 2020-11-23 16:28 | WPDNEURORHBP ---
Subjective Date/time seen: 11/23/20 16:28 50 years old with left [id number]-[id number] amputation, hypertension, diabetes mellitus, obstructive sleep apnea, peripheral arterial disease, and atrial fibrillation, left femoral to femoral artery bypass graft prior to this particular incident Exam Const: General: cooperative, comfortable and no acute distress Nutritional Appearance: average body habitus and overweight Limitations: physical limitations ( left [id number] amputation) HENMT: Head: normocephalic Ears: hearing grossly normal bilaterally General nose exam: Normal external nose present Face and sinus: normal facial exam Eyes: General: appearance normal, both eyes and all related structures Neck: Neck: full ROM Resp: Effort & Inspection: normal respiratory effort Auscultation: clear to auscultation bilaterally Cardio: Rate: regular rate GI: Auscultation: normal bowel sounds Neuro: General: patient oriented x3 Cranial nerves: Yes CN's II-XII intact bilaterally Cognition (Neuro): normal cognition Motor exam (neuro): 5/5 motor strength present throughout and Pronator motor function not present Coordination: [id number] test normal Extrem: Left lower extremity: full ROM Psych: Appearance: grossly normal Objective Data Vital Signs Vital Signs: Vital Signs - 24 hr 11/22/20 21:19 11/22/20 22:00 11/23/20 06:00 Temperature 36.7 C 36.3 C L Pulse Rate 86 92 80 Respiratory Rate 18 16 Blood Pressure 144/71 H 115/63 Pulse Oximetry 97 94 11/23/20 08:41 11/23/20 08:42 11/23/20 14:00 Temperature 36.7 C Pulse Rate 80 80 87 Respiratory Rate 18 Blood Pressure 116/59 L Pulse Oximetry 94 Intake/Output Intake/Output: Intake & Output 11/20/20 11/21/20 11/22/20 11/23/20 23:59 23:59 23:59 23:59 Intake Total 3310 1510 1440 480 Output Total 2425 2000 500 650 Balance 885 -919 940 170 Meds/Results Medications: Active Medications Generic Name Dose Route Start Last Admin Trade Name Freq PRN Reason Stop Dose Admin Albuterol 1 puff 11/17/20 01:51 Albuterol Sulfate (*Sp) Aerosol 1 Puff INHALATION Q4HRT PRN Shortness Of Breath Albuterol/Ipratropium 1 puff 11/17/20 04:40 Albuterol/Ipratropium (*Sp) 4 Gm Respimat INHALATION QIDRT PRN Shortness Of Breath Amitriptyline HCl 25 mg 11/16/20 21:40 11/22/20 21:19 Amitriptyline Hcl 25 Mg Tablet PO 25 mg HS YUKI Administration Amlodipine Besylate 10 mg 11/17/20 09:00 11/23/20 08:41 Amlodipine Besylate 5 Mg Tablet PO 10 mg DAILY YUKI Administration Aspirin 81 mg 11/17/20 09:00 11/23/20 08:40 Aspirin 81 Mg Enteric Tablet PO 81 mg DAILY YUKI Administration Atorvastatin Calcium 20 mg 11/16/20 21:40 11/22/20 21:19 Atorvastatin 20 Mg Tablet PO 20 mg HS YUKI Administration Carvedilol 6.25 mg 11/16/20 21:40 11/23/20 08:42 Carvedilol 6.25 Mg Tablet PO 6.25 mg Q12HR YUKI Administration Dextrose 12.5 gm 11/16/20 21:46 Dextrose 50% 25 Gm/50 Ml Syringe IV PUSH PRN PRN Hypoglycemia Protocol Diltiazem HCl 240 mg 11/17/20 09:00 11/23/20 08:40 Diltiazem Hcl Cd 240 Mg Cap.Er.24h PO 240 mg DAILY YUKI Administration Divalproex Sodium 500 mg 11/16/20 21:40 11/23/20 08:41 Divalproex Sodium Er 500 Mg Tab.24h PO 500 mg BID YUKI Administration Docusate Sodium 100 mg 11/19/20 11:56 Docusate Sodium 100 Mg Capsule PO PRN PRN CONSTIPATION Ergocalciferol 50,000 unit 11/23/20 09:00 11/23/20 08:41 Ergocalciferol 50,000 Unit Capsule PO 50,000 unit We@0900 YUKI Administration Fenofibrate 160 mg 11/17/20 09:00 11/23/20 08:40 Fenofibrate 160 Mg Tablet PO 160 mg DAILY YUKI Administration Fish Oil 1 gm 11/17/20 09:00 11/23/20 08:41 Bronson 3 Polyunsat Fatty Acids 1 Gm Cap PO 1 gm QAM YUKI Administration Gabapentin 600 mg 11/16/20 21:40 11/22/20 21:19 Gabapentin 300 Mg Capsule PO 600 mg HS YUKI Administra
[2020-11-23 16:52] LABS: Glucose Point of Care 119 (65-105)
[2020-11-23] MEDS: ATORVASTATIN 20 MG TABLET PO (21:16)
[2020-11-23] MEDS: AMITRIPTYLINE HCL 25 MG TABLET PO (21:16)
[2020-11-23] MEDS: INSULIN GLARGINE (*BKC) 100 UNITS/ML 10 UNITS SUB-Q (21:17)
[2020-11-23 21:22] LABS: Glucose Point of Care 227 (65-105)
[2020-11-24] VITALS (7 sets, daily range): BP systolic 110–114; BP diastolic 53–61; PULSE 76–90; RESP 16–20; TEMP 36.4–36.7; O2SAT 93–98
[2020-11-24] MEDS: oxyCODONE HCL (*CRX) 5 MG TAB IR 10 MG PO ×3 (02:36→15:58)
[2020-11-24 05:13] LABS: Basophils Percent Auto 0.5 % (0.2-1.2); Eosinophils Absolute Auto 0.1 K/mm3 (0-0.3); Eosinophils Percent Auto 1.5 % (0-4.4); Hematocrit 26.6 % (37.0-47.0); Hemoglobin 8.3 g/dL (12.0-15.0); Immature Granulocyte Absolute 0.02 K/mm3 (0.00-0.031); Immature Granulocyte Percent A 0.3 % (0-0.5); Lymphocytes Absolute Auto 1.25 K/mm3 (0.9-3.2); Lymphocytes Percent Auto 16.8 % (18.3-44.2); Mean Corpuscular HGB Conc 31.2 g/dl (32-36); Mean Corpuscular Hemoglobin 27.4 pg (26-34); Mean Corpuscular Volume 87.8 fl (80-100); Mean Platelet Volume 9.2 fl (7.4-10.4); Monocytes Absolute Auto 0.8 K/mm3 (0.1-0.6); Monocytes Percent Auto 10.6 % (2.6-8.5); Neutrophils Absolute Auto 5.2 K/mm3 (1.3-6.7); Neutrophils Percent Auto 70.3 % (45.5-73.1); Platelet Count Result 290 k/mm3 (150-375); Red Blood Count 3.03 M/mm3 (4.2-5.4); White Blood Count 7.4 K/mm3 (4.5-10.0)
[2020-11-24 05:18] LABS: Anion Gap 6 mmol/L (8-16); Blood Urea Nitrogen 18 mg/dL (7-17); Calcium 8.3 mg/dL (8.4-10.2); Carbon Dioxide 30 mmol/L (22-30); Chloride 98 mmol/L (98-107); Estimated CRCL calculation 54 ml/min; Estimated Glomerular Filt Rate 49; Glucose 127 mg/dL (65-105); Potassium 4.9 mmol/L (3.4-5.0); Sodium 134 mmol/L (137-145)
[2020-11-24] MEDS: ALTEPLASE 2 MG VIAL (CATHFLO) IV PUSH (05:23)
[2020-11-24] MEDS: METOCLOPRAMIDE HCL INJ 10 MG/2 ML VIAL 5 MG IV PUSH ×4 (06:27→21:05)
[2020-11-24 06:32] LABS: Glucose Point of Care 118 (65-105)
[2020-11-24] MEDS: lisinopriL 20 MG TABLET 40 MG PO (08:40)
[2020-11-24] MEDS: carvediloL 6.25 MG TABLET PO ×2 (08:40→21:03)
[2020-11-24] MEDS: amLODIPine BESYLATE 5 MG TABLET 10 MG PO (08:40)
[2020-11-24] MEDS: INSULIN ASPART (*BKC) 100 UNITS/ML SUB-Q ×3 (08:40→17:40)
[2020-11-24] MEDS: METOPROLOL SUCCINATE EXT REL 50 MG TABCR PO (08:41)
[2020-11-24] MEDS: hydroCHLOROthiazide 12.5 MG CAPSULE PO (08:41)
[2020-11-24] MEDS: GABAPENTIN 300 MG CAPSULE 600 MG PO ×4 (08:41→21:02)
[2020-11-24] MEDS: ASPIRIN 81 MG ENTERIC TABLET PO (08:41)
[2020-11-24] MEDS: MAGNESIUM OXIDE 400 MG TABLET 800 MG PO ×2 (08:41→17:40)
[2020-11-24] MEDS: DIVALPROEX SODIUM ER 500 MG TAB.24H PO ×2 (08:41→17:40)
[2020-11-24] MEDS: OMEGA 3 POLYUNSAT FATTY ACIDS 1 GM CAP PO (08:41)
[2020-11-24] MEDS: LINEZOLID 600 MG TABLET PO ×2 (08:42→21:01)
[2020-11-24] MEDS: ISOSORBIDE MONONITRATE 60 MG TAB.ER.24H PO (08:42)
[2020-11-24] MEDS: PANTOPRAZOLE 40 MG TABLET PO ×2 (08:42→17:40)
[2020-11-24] MEDS: FENOFIBRATE 160 MG TABLET PO (08:42)
--- NOTE | 2020-11-24 09:50 | PCCDE ---
Diabetes education f/up: pt continues on 10 units Lantus HS and 3 units Novolog AC TID Since this regimen has been implemented there have been no further episodes of hypoglycemia with BG range of 88-145mg/dl with one outlier last HS of 227mg/dl. Pt is eating 75-100% of consistent carb diet. Would recommend that pt be discharged on this regimen and pt should follow up with [facility] and recausticizing operator. (do not resume home insulin orders). Pt had another staff member in room at the time. Discussed recommendations with Rosemary GAMINO. Will be available per request.
[2020-11-24 11:47] LABS: Glucose Point of Care 113 (65-105)
--- NOTE | 2020-11-24 13:00 | WPDNEURORHBP ---
Subjective Date/time seen: 11/24/20 13:00 50 years old with left fkjav-abq-[id number] amputation in addition to the history of hypertension, diabetes mellitus, obstructive sleep apnea, peripheral arterial disease, and atrial fibrillation, and history of left femoral to femoral bypass graft prior to this particular incident. On today's visit she is complaining of scratchy throat and generally not feeling well, she remains afebrile with temp of 36.7? pulse 76 respirations 16 pulse ox 93 and blood pressure 110/53 in supine, there has been no change in the medications, we ordered the throat culture today . Review of Systems Review of Systems: All systems reviewed & are unremarkable except as noted in HPI and below Exam Const: General: cooperative, comfortable and no acute distress Nutritional Appearance: overweight Orientation/consciousness: patient oriented x3 Limitations: physical limitations ( left xhtlh-[id number]-[id number] amputation) HENMT: Head: normocephalic Ears: hearing grossly normal bilaterally General nose exam: Normal external nose present Face and sinus: normal facial exam Mouth: Yes Normal oral and palatal mucosa present Eyes: General: appearance normal, both eyes and all related structures Neck: Neck: full ROM Resp: Effort & Inspection: normal respiratory effort and able to speak in complete sentences Auscultation: clear to auscultation bilaterally Cardio: Rate: regular rate GI: Auscultation: normal bowel sounds Skin: General skin exam: no rashes or lesions noted Wounds: amputation site ( stable/ healthy) and wounds noted ( improving) Neuro: General: patient oriented x3 Cranial nerves: Yes CN's II-XII intact bilaterally Cognition (Neuro): normal cognition Speech: normal speech Motor exam (neuro): 5/5 motor strength present throughout Sensory Exam: Sensory deficit (Neuro) Psych: Appearance: grossly normal Objective Data Vital Signs Vital Signs: Vital Signs - 24 hr 11/23/20 14:00 11/23/20 20:00 11/23/20 21:15 Temperature 36.7 C Pulse Rate 87 83 70 Respiratory Rate 18 16 Blood Pressure 116/59 L Pulse Oximetry 94 96 11/23/20 21:55 11/24/20 05:53 11/24/20 08:40 Temperature 36.6 C 36.7 C Pulse Rate 83 76 76 Respiratory Rate 16 16 Blood Pressure 119/64 110/53 L Pulse Oximetry 96 93 11/24/20 08:41 Temperature Pulse Rate 76 Respiratory Rate Blood Pressure Pulse Oximetry Intake/Output Intake/Output: Intake & Output 11/21/20 11/22/20 11/23/20 11/24/20 23:59 23:59 23:59 23:59 Intake Total 1510 1440 720 480 Output Total 1999 500 800 250 Balance -490 940 -80 230 Meds/Results Medications: Active Medications Generic Name Dose Route Start Last Admin Trade Name Freq PRN Reason Stop Dose Admin Albuterol 1 puff 11/17/20 01:51 Albuterol Sulfate (*Sp) Aerosol 1 Puff INHALATION Q4HRT PRN Shortness Of Breath Albuterol/Ipratropium 1 puff 11/17/20 04:40 Albuterol/Ipratropium (*Sp) 4 Gm Respimat INHALATION QIDRT PRN Shortness Of Breath Alteplase, Recombinant 2 mg 11/24/20 04:36 11/24/20 05:23 Alteplase 2 Mg Vial (Cathflo) IV PUSH 2 mg ONCE PRN Administration Line Occlusion Amitriptyline HCl 25 mg 11/16/20 21:40 11/23/20 21:16 Amitriptyline Hcl 25 Mg Tablet PO 25 mg HS YUKI Administration Amlodipine Besylate 10 mg 11/17/20 09:00 11/24/20 08:40 Amlodipine Besylate 5 Mg Tablet PO 10 mg DAILY YUKI Administration Aspirin 81 mg 11/17/20 09:00 11/24/20 08:41 Aspirin 81 Mg Enteric Tablet PO 81 mg DAILY YUKI Administration Atorvastatin Calcium 20 mg 11/16/20 21:40 11/23/20 21:16 Atorvastatin 20 Mg Tablet PO 20 mg HS YUKI Administration Benzocaine 1 lozenge 11/24/20 12:42 Benzocaine/Menthol (*Bkc) 18 Ea Lozenge PO PRN PRN Sore Throat Carvedilol 6.25 mg 11/16/20 21:40 11/24/20 08:40 Carvedilol 6.25 Mg Tablet PO 6.25 mg Q12HR YUKI Administration Dextrose 12.5 gm 11/16/20 21:4
[2020-11-24] MEDS: ACETAMINOPHEN 325 MG TABLET 650 MG PO (14:10)
[2020-11-24 17:06] LABS: Glucose Point of Care 104 (65-105)
[2020-11-24 21:00] LABS: Glucose Point of Care 99 (65-105)
[2020-11-24] MEDS: ATORVASTATIN 20 MG TABLET PO (21:02)
[2020-11-25] MEDS: oxyCODONE HCL (*CRX) 5 MG TAB IR 10 MG PO ×3 (01:58→21:32)
[2020-11-25] MEDS: METOCLOPRAMIDE HCL INJ 10 MG/2 ML VIAL 5 MG IV PUSH ×2 (05:52→12:10)
[2020-11-25 06:00] VITALS: BP 127/65; PULSE 86; RESP 18; TEMP 36.4; O2SAT 94
[2020-11-25 06:57] LABS: Glucose Point of Care 146 (65-105)
[2020-11-25] MEDS: INSULIN ASPART (*BKC) 100 UNITS/ML SUB-Q ×3 (07:29→16:35)
[2020-11-25] MEDS: GABAPENTIN 300 MG CAPSULE 600 MG PO ×4 (07:33→21:23)
[2020-11-25] MEDS: hydroCHLOROthiazide 12.5 MG CAPSULE PO (07:34)
[2020-11-25] MEDS: FENOFIBRATE 160 MG TABLET PO (07:34)
[2020-11-25] MEDS: PANTOPRAZOLE 40 MG TABLET PO ×2 (07:34→16:27)
[2020-11-25] MEDS: ISOSORBIDE MONONITRATE 60 MG TAB.ER.24H PO (07:34)
[2020-11-25] MEDS: OMEGA 3 POLYUNSAT FATTY ACIDS 1 GM CAP PO (07:34)
[2020-11-25] MEDS: MAGNESIUM OXIDE 400 MG TABLET 800 MG PO ×2 (07:34→16:27)
[2020-11-25] MEDS: LINEZOLID 600 MG TABLET PO ×2 (07:34→21:23)
[2020-11-25] MEDS: ASPIRIN 81 MG ENTERIC TABLET PO (07:34)
[2020-11-25 07:35] VITALS: PULSE 86
[2020-11-25] MEDS: DIVALPROEX SODIUM ER 500 MG TAB.24H PO ×2 (07:35→16:27)
[2020-11-25] MEDS: carvediloL 6.25 MG TABLET PO ×2 (07:35→21:21)
[2020-11-25] MEDS: METOPROLOL SUCCINATE EXT REL 50 MG TABCR PO (07:35)
[2020-11-25] MEDS: amLODIPine BESYLATE 5 MG TABLET 10 MG PO (07:35)
[2020-11-25] MEDS: lisinopriL 20 MG TABLET 40 MG PO (07:36)
--- NOTE | 2020-11-25 09:07 | PC.NURSE ---
Spoke with surgeon's office this morning regarding wound vac and length of time wound vac is needed since patient will be discharging. Adelina at Dr Reid's office stated that she would need it on at until until patient follow's up with their office. She stated wound vac is to be changed 3 times per week. She also stated they would like santyl applied to wound bed prior to wound vac being put on. Spoke with wound care to update them prior to wound vac change today. Follow up appointment also scheduled for patient. Patient is to follow up on 12/05/20 at 10 am at their office.
[2020-11-25] MEDS: BENZOCAINE/MENTHOL (*BKC) 18 EA LOZENGE 1 LOZENGE PO (10:51)
[2020-11-25] MEDS: COLLAGENASE OINT 30 GM TUBE 1 APPLIC TOPICAL (10:51)
[2020-11-25 12:32] LABS: Glucose Point of Care 118 (65-105)
[2020-11-25 14:00] VITALS: BP 100/52; PULSE 85; RESP 20; TEMP 36.6; O2SAT 94
--- NOTE | 2020-11-25 15:07 | WPDNEURORHBP ---
Subjective Date/time seen: 11/25/20 15:07 50 years old with left [id number] amputation in addition the history of hypertension, diabetes mellitus, occiput sleep apnea, peripheral arterial disease, and atrial fibrillation. Has been involving the physical therapy and occupational therapy regularly like to DC the IV and receives the Reglan p.o. also her vital signs remained stable Review of Systems Review of Systems: All systems reviewed & are unremarkable except as noted in HPI and below Exam Const: General: cooperative and comfortable Nutritional Appearance: average body habitus and overweight Orientation/consciousness: patient oriented x3 Limitations: physical limitations Eyes: General: appearance normal, both eyes and all related structures Neck: Neck: full ROM Resp: Effort & Inspection: normal respiratory effort Auscultation: clear to auscultation bilaterally Cardio: Rate: regular rate GI: Auscultation: normal bowel sounds Neuro: General: patient oriented x3 Cranial nerves: Yes CN's II-XII intact bilaterally Cognition (Neuro): normal cognition Speech: normal speech Motor exam (neuro): 5/5 motor strength present throughout Sensory Exam: Sensory deficit (Neuro) Psych: Appearance: grossly normal Objective Data Vital Signs Vital Signs: Vital Signs - 24 hr 11/24/20 20:50 11/24/20 21:03 11/24/20 22:00 Temperature 36.4 C Pulse Rate 82 82 86 Respiratory Rate 20 16 Blood Pressure 110/58 L Pulse Oximetry 98 96 11/25/20 06:00 11/25/20 07:35 Temperature 36.4 C Pulse Rate 86 86 Respiratory Rate 18 Blood Pressure 127/65 Pulse Oximetry 94 Intake/Output Intake/Output: Intake & Output 11/22/20 11/23/20 11/24/20 11/25/20 23:59 23:59 23:59 23:59 Intake Total 6567 948 2948 960 Output Total 500 800 250 Balance 940 -80 950 960 Meds/Results Medications: Active Medications Generic Name Dose Route Start Last Admin Trade Name Freq PRN Reason Stop Dose Admin Acetaminophen 650 mg 11/24/20 13:52 11/24/20 14:10 Acetaminophen 325 Mg Tablet PO 650 mg Q4H PRN Administration Mild Pain (1-3) or Fever Albuterol 1 puff 11/17/20 01:51 Albuterol Sulfate (*Sp) Aerosol 1 Puff INHALATION Q4HRT PRN Shortness Of Breath Albuterol/Ipratropium 1 puff 11/17/20 04:40 Albuterol/Ipratropium (*Sp) 4 Gm Respimat INHALATION QIDRT PRN Shortness Of Breath Alteplase, Recombinant 2 mg 11/24/20 04:36 11/24/20 05:23 Alteplase 2 Mg Vial (Cathflo) IV PUSH 2 mg ONCE PRN Administration Line Occlusion Amitriptyline HCl 25 mg 11/16/20 21:40 11/24/20 21:03 Amitriptyline Hcl 25 Mg Tablet PO Not Given HS YUKI Amlodipine Besylate 10 mg 11/17/20 09:00 11/25/20 07:35 Amlodipine Besylate 5 Mg Tablet PO 10 mg DAILY YUKI Administration Aspirin 81 mg 11/17/20 09:00 11/25/20 07:34 Aspirin 81 Mg Enteric Tablet PO 81 mg DAILY YUKI Administration Atorvastatin Calcium 20 mg 11/16/20 21:40 11/24/20 21:02 Atorvastatin 20 Mg Tablet PO 20 mg HS YUKI Administration Benzocaine 1 lozenge 11/24/20 12:42 11/25/20 10:51 Benzocaine/Menthol (*Bkc) 18 Ea Lozenge PO 1 lozenge PRN PRN Administration Sore Throat Carvedilol 6.25 mg 11/16/20 21:40 11/25/20 07:35 Carvedilol 6.25 Mg Tablet PO 6.25 mg Q12HR YUKI Administration Collagenase 1 applic 11/25/20 09:05 11/25/20 10:51 Collagenase Oint 30 Gm Tube TOPICAL 1 applic MoWeFr YUKI Administration Dextrose 12.5 gm 11/16/20 21:46 Dextrose 50% 25 Gm/50 Ml Syringe IV PUSH PRN PRN Hypoglycemia Protocol Diltiazem HCl 240 mg 11/17/20 09:00 11/25/20 07:34 Diltiazem Hcl Cd 240 Mg Cap.Er.24h PO 240 mg DAILY YUKI Administration Divalproex Sodium 500 mg 11/16/20 21:40 11/25/20 07:35 Divalproex Sodium Er 500 Mg Tab.24h PO 500 mg BID YUKI Administration Docusate Sodium 100 mg 11/19/20 11:56 Docusate Sodium 100 Mg Capsule PO
--- NOTE | 2020-11-25 15:56 | PCPTNOTE ---
Delisa Westbrook Yumiko was evaluated for a slide board on 11/25/2020 by this physical therapist. The slide board will resolve patient's mobility limitations and will be used for ADL's within the home. The patient can safely use the slide board. ?The slide board will resolve the patient?s mobility deficits, including balance, strength and endurance deficits, and NWBing L residual limb.
[2020-11-25] MEDS: METOCLOPRAMIDE HCL 5 MG TABLET PO ×2 (16:25→21:23)
[2020-11-25 16:45] LABS: Glucose Point of Care 165 (65-105)
[2020-11-25 21:21] VITALS: PULSE 88
[2020-11-25] MEDS: ATORVASTATIN 20 MG TABLET PO (21:22)
[2020-11-25] MEDS: AMITRIPTYLINE HCL 25 MG TABLET PO (21:23)
[2020-11-25] MEDS: INSULIN GLARGINE (*BKC) 100 UNITS/ML 10 UNITS SUB-Q (21:24)
[2020-11-25 21:36] LABS: Glucose Point of Care 140 (65-105)
[2020-11-25 22:00] VITALS: BP 129/68; PULSE 93; RESP 18; TEMP 36.7; O2SAT 96
[2020-11-26] VITALS (9 sets, daily range): BP systolic 100–138; BP diastolic 43–73; PULSE 86–98; RESP 18–22; TEMP 36.3–37.7; O2SAT 90–97
[2020-11-26] MEDS: METOCLOPRAMIDE HCL 5 MG TABLET PO ×4 (05:46→21:25)
[2020-11-26 05:55] LABS: Glucose Point of Care 148 (65-105)
[2020-11-26] MEDS: ACETAMINOPHEN 325 MG TABLET 650 MG PO (09:39)
[2020-11-26] MEDS: INSULIN ASPART (*BKC) 100 UNITS/ML SUB-Q ×2 (09:41→17:40)
[2020-11-26] MEDS: FENOFIBRATE 160 MG TABLET PO (09:43)
[2020-11-26] MEDS: ASPIRIN 81 MG ENTERIC TABLET PO (09:43)
[2020-11-26] MEDS: lisinopriL 20 MG TABLET 40 MG PO (09:43)
[2020-11-26] MEDS: PANTOPRAZOLE 40 MG TABLET PO ×2 (09:43→17:42)
[2020-11-26] MEDS: amLODIPine BESYLATE 5 MG TABLET 10 MG PO (09:43)
[2020-11-26] MEDS: GABAPENTIN 300 MG CAPSULE 600 MG PO ×4 (09:44→21:25)
[2020-11-26] MEDS: MAGNESIUM OXIDE 400 MG TABLET 800 MG PO ×2 (09:45→17:41)
[2020-11-26] MEDS: OMEGA 3 POLYUNSAT FATTY ACIDS 1 GM CAP PO (09:45)
[2020-11-26] MEDS: ISOSORBIDE MONONITRATE 60 MG TAB.ER.24H PO (09:45)
[2020-11-26] MEDS: METOPROLOL SUCCINATE EXT REL 50 MG TABCR PO (09:45)
[2020-11-26] MEDS: DIVALPROEX SODIUM ER 500 MG TAB.24H PO ×2 (09:45→17:41)
[2020-11-26] MEDS: hydroCHLOROthiazide 12.5 MG CAPSULE PO (09:46)
[2020-11-26] MEDS: carvediloL 6.25 MG TABLET PO ×2 (09:46→21:25)
[2020-11-26] MEDS: LOPERAMIDE HCL 2 MG CAPSULE PO (10:44)
[2020-11-26] MEDS: oxyCODONE HCL (*CRX) 5 MG TAB IR 10 MG PO (10:45)
--- NOTE | 2020-11-26 11:31 | PCPTNOTE ---
Unable to see patient for therapy session this morning due to feeling ill. Patient unable to keep eyes open to participate with safely with therapy. Will attempt again this afternoon.
[2020-11-26 12:06] LABS: Glucose Point of Care 131 (65-105)
[2020-11-26 12:24] LABS: Basophils Percent Auto 0.4 % (0.2-1.2); Eosinophils Absolute Auto 0.1 K/mm3 (0-0.3); Hematocrit 27.4 % (37.0-47.0); Hemoglobin 8.3 g/dL (12.0-15.0); Immature Granulocyte Absolute 0.03 K/mm3 (0.00-0.031); Immature Granulocyte Percent A 0.4 % (0-0.5); Lymphocytes Absolute Auto 1.23 K/mm3 (0.9-3.2); Lymphocytes Percent Auto 14.7 % (18.3-44.2); Mean Corpuscular HGB Conc 30.3 g/dl (32-36); Mean Corpuscular Hemoglobin 28.9 pg (26-34); Mean Corpuscular Volume 95.5 fl (80-100); Mean Platelet Volume 11.7 fl (7.4-10.4); Monocytes Absolute Auto 0.6 K/mm3 (0.1-0.6); Monocytes Percent Auto 6.9 % (2.6-8.5); Neutrophils Absolute Auto 6.4 K/mm3 (1.3-6.7); Neutrophils Percent Auto 76.6 % (45.5-73.1); Platelet Count Result 110 k/mm3 (150-375); Red Blood Count 2.87 M/mm3 (4.2-5.4); Red Cell Distribution Width 15.6 % (11.5-14.5); White Blood Count 8.4 K/mm3 (4.5-10.0)
[2020-11-26 14:02] LABS: Add Urine Microscopic? YES; Appearance Urine Cloudy (Clear); Bacteria Urine Trace /hpf; Bilirubin Urine Negative (Negative); Blood Urine 2+ (Negative); Color Urine Yellow (Yellow); Glucose Urine UA Negative (Negative); Ketones Urine Negative (Negative); Leukocyte Esterase Ur 3+ LEU/UL (Negative); Mucus Urine Rare /lpf; Nitrate Urine Negative (Negative); Protein Urine 1+ mg/dL (Negative); Specific Grav Ur 1.015 (1.001-1.035); Squamous Epithelial Cell Urine Many /hpf (Few); Transitional Epi Cells Urine Rare /hpf (None Seen); Urobilinogen Urine Negative mg/dL (<2.0); WBC Clumps Urine Present /HPF; WBC Urine 21-30 /hpf
[2020-11-26 14:11] LABS: Budding Yeast Urine Present /hpf
[2020-11-26 14:16] LABS: Glucose Point of Care 132 (65-105)
--- NOTE | 2020-11-26 14:18 | PCOTNOTE ---
Pt did not receive full minutes for OT this date due to decline in medical status. Pt presented with fever, diarrhea, decreased BP (100/40 in supine), increased fatigue, and confusion. Pt unable to participate in functional OT this pm.
--- NOTE | 2020-11-26 15:07 | PCPTNOTE ---
Patient did not receive full therapy minutes this date for Physical Therapy due to decline in medical condition. Patient demonstrates with increased fatigue and confusion and is unable to keep eyes open to participate in functional therapy this afternoon.
--- NOTE | 2020-11-26 16:23 | PC.NURSE ---
Patient c/o not feeling well and having loose stools. [place] warm to touch and was 100 temp at 8:30am. Tylenol given for comfort and patient is very lethargic and having difficult time doing therapy. Spoke with Dr. Ascencio and he ordered UA, stool culture, CBC, CXR. and imodium. CXR negative and CBC were negative for acute illness, UA is positive and will culture out and Dr. will start on Bactrim due to her declining condition; and a previous throat culture is pending as well from 11/24. Patient had asked for pain management as well this morning and I asked to decrease the dose for now. Blood sugar was 132 and held the 3units of insulin for now because she did not eat well, fever broke, but blood pressure is low at 100/43. Dr. Ascencio is aware of above and to push oral fluids for now and monitor, and to also keep midline in for now.
--- NOTE | 2020-11-26 17:04 | PM.CNNEP ---
Assessment and Plan Assessment and plan (1) MARIAM (acute kidney injury): Code(s): N17.9 - Acute kidney failure, unspecified Status: Acute Assessment and Plan: normal creatinine at baseline etiology likely multiple issues: - suspect prerenal factors (diminished oral intake + diarrhea) - relative hypotension/altered hemodynamics - infection (possible UTI) - medications (lisinopril + HCTZ + Bactrim) hold MIRANDA-I, diuretics; BP medications with parameters check renal ultrasound check urine electrolytes IVF resuscitation for next 24 hours follow repeat labs and UOP (2) Hyperkalemia: Code(s): E87.5 - Hyperkalemia Status: Acute Assessment and Plan: due to #1 in conjunction with MIRANDA-I use kayexalate now and follow trend of K+ stop MIRANDA-I and bactrim (3) Hypotension: Code(s): I95.9 - Hypotension, unspecified Status: Acute Assessment and Plan: noted for the last several days holding some BP medications and others with parameters follow hemodynamics (4) UTI (urinary tract infection): Code(s): N39.0 - Urinary tract infection, site not specified Status: Acute Assessment and Plan: UA highly suggestive follow urine culture empirically on cipro at this time (5) History of left below knee amputation: Code(s): Z89.512 - Acquired absence of left leg below knee Status: Acute Assessment and Plan: local wound care PT/OT/rehab Will continue to follow. History of Present Illness Reason for Consult Consult date: 11/26/20 Reason for consult: acute renal failure and hyperkalemia Chief Complaint Chief complaint: Left BKA History of Present Illness Narrative: Most of the information that I obtained is from review of the electronic medical record as well as the accompanying paper chart given her extensive hospitalization prior to her transfer here to [facility]. The patient is a 50-year-old female with a past medical history as outlined below who was transferred to [facility] after a lengthy hospitalization at [facility] from multitude of issues and problems. She initially presented there in early September of 2020 with altered mental status. At that time she had high fever was tachycardic tachypneic and had all evidence/signs of possible early sepsis. As she had significant discomfort in her left lower extremity imaging studies demonstrated that her femoral to femoral bypass graft seems to be acutely infected as there was some fluid, stranding, and locules of air around the graft itself. Subsequent blood cultures demonstrated methicillin-resistant Staph aureus and further imaging demonstrated significant perigraft fluid at the area of the anastomosis. Her hospital course was extremely complicated but vascular surgery was called for removal of the graft and subsequent surgical intervention but her hospital course was complicated by acute kidney injury that required renal replacement therapy/dialysis. Her kidney function did recover to its normal baseline but after all the interventions and procedures, she still has severe issues and problems with vascular disease and infection that eventually required a left below-knee amputation for definitive control of the infection and her multiple issues and problems as already mentioned. Eventually she was deemed stable be transferred to the next level care which was acute rehab here at [facility]. She has been a here at [facility] for about the last week to 10 days and had been doing reasonably well with therapy and her chronic medical issues but then today and nursing staff noted that her mentation did not seem to be as appropriate as it has been previously. Routine blood tests were done which demonstrated a marked decline in her kidney function in association
[2020-11-26 17:05] LABS: Glucose Point of Care 158 (65-105)
[2020-11-26 18:11] LABS: Albumin Level 2.9 g/dL (3.5-5.1); Alkaline Phosphatase 68 U/L (38-126); Anion Gap 7 mmol/L (8-16); Aspartate Amino Transferase 14 U/L (14-36); Bilirubin,Total 0.3 mg/dL (0.2-1.3); Blood Urea Nitrogen 34 mg/dL (7-17); Calcium 8.5 mg/dL (8.4-10.2); Carbon Dioxide 24 mmol/L (22-30); Chloride 101 mmol/L (98-107); Estimated CRCL calculation 43 ml/min; Estimated Glomerular Filt Rate 36; Glucose 167 mg/dL (65-105); Potassium 6.9 mmol/L (3.4-5.0); Sodium 132 mmol/L (137-145)
[2020-11-26 18:19] LABS: Alanine Aminotransferase < 6 U/L (4-35)
[2020-11-26] MEDS: SODIUM CHLORIDE 0.9% IV 1,000 ML 75 ML IV CONT (19:28)
--- NOTE | 2020-11-26 19:29 | PC.NURSE ---
No urine output, called for additional labs, CMP ordered and returned with critical high Potassium and BUN and Creatinine climbing. Dr. Arceo consulted per Dr. Ascencio.
[2020-11-26] MEDS: SODIUM POLYSTYRENE SULFONONATE 15 GM/60 ML BTL 45 GM PO (19:32)
[2020-11-26 21:17] LABS: Creatinine Urine 220.6 mg/dL; Total Protein Urine Random 12 mg/dL; Ur Ttl Prot Creatinine Ratio 0.05 mg/mg (0-0.20)
[2020-11-26 21:22] LABS: Sodium Urine Random < 5 meq/L
[2020-11-26] MEDS: AMITRIPTYLINE HCL 25 MG TABLET PO (21:24)
[2020-11-26] MEDS: CIPROFLOXACIN 250 MG TABLET PO (21:24)
[2020-11-26] MEDS: ATORVASTATIN 20 MG TABLET PO (21:25)
[2020-11-26] MEDS: INSULIN GLARGINE (*BKC) 100 UNITS/ML 10 UNITS SUB-Q (21:29)
[2020-11-26 21:38] LABS: Glucose Point of Care 149 (65-105)
[2020-11-27] VITALS (7 sets, daily range): BP systolic 121–147; BP diastolic 63–66; PULSE 84–104; RESP 20–22; TEMP 36.1–37.1; O2SAT 93–98
[2020-11-27 04:49] LABS: Albumin Level 3.1 g/dL (3.5-5.1); Anion Gap 9 mmol/L (8-16); Blood Urea Nitrogen 31 mg/dL (7-17); Calcium 8.2 mg/dL (8.4-10.2); Carbon Dioxide 31 mmol/L (22-30); Chloride 98 mmol/L (98-107); Estimated CRCL calculation 48 ml/min; Estimated Glomerular Filt Rate 42; Glucose 127 mg/dL (65-105); Phosphorus 5.5 mg/dL (2.5-4.5); Potassium 5.1 mmol/L (3.4-5.0); Sodium 138 mmol/L (137-145)
[2020-11-27] MEDS: METOCLOPRAMIDE HCL 5 MG TABLET PO ×4 (05:57→21:50)
[2020-11-27 06:02] LABS: Glucose Point of Care 127 (65-105)
[2020-11-27] MEDS: INSULIN ASPART (*BKC) 100 UNITS/ML SUB-Q ×2 (08:17→11:51)
[2020-11-27] MEDS: SODIUM CHLORIDE 0.9% IV 1,000 ML 75 ML IV CONT (08:19)
[2020-11-27] MEDS: GABAPENTIN 300 MG CAPSULE 600 MG PO ×4 (08:21→22:10)
[2020-11-27] MEDS: ASPIRIN 81 MG ENTERIC TABLET PO (08:22)
[2020-11-27] MEDS: MAGNESIUM OXIDE 400 MG TABLET 800 MG PO ×2 (08:23→16:52)
[2020-11-27] MEDS: FENOFIBRATE 160 MG TABLET PO (08:23)
[2020-11-27] MEDS: METOPROLOL SUCCINATE EXT REL 50 MG TABCR PO (08:24)
[2020-11-27] MEDS: OMEGA 3 POLYUNSAT FATTY ACIDS 1 GM CAP PO (08:24)
[2020-11-27] MEDS: ISOSORBIDE MONONITRATE 60 MG TAB.ER.24H PO (08:25)
[2020-11-27] MEDS: PANTOPRAZOLE 40 MG TABLET PO ×2 (08:25→16:52)
[2020-11-27] MEDS: DIVALPROEX SODIUM ER 500 MG TAB.24H PO ×2 (08:26→16:50)
[2020-11-27] MEDS: ACETAMINOPHEN 325 MG TABLET 650 MG PO (08:36)
[2020-11-27] MEDS: carvediloL 6.25 MG TABLET PO ×2 (08:39→22:08)
[2020-11-27 11:31] LABS: Glucose Point of Care 131 (65-105)
--- NOTE | 2020-11-27 13:28 | PCOTNOTE ---
Pt did not receive full minutes this date due to multiple refusals. Pt presented with increased fatigue and decreased motivation. In afternoon attempt, patient stated, Sick. Pt refused to eat lunch. Pt would not respond any further. Pt not seen for this reason.
--- NOTE | 2020-11-27 14:00 | PCPTNOTE ---
Patient did not receive full therapy minutes this date. When asked if patient felt up to participating with therapy, patient shook her head no . Attempted to see patient at 1115, patient did not respond to therapist, except to say I heard you , however, no other response was given. No therapy due to patient's medical state this date.
--- NOTE | 2020-11-27 15:11 | P.PNNP_ITS ---
Progress Note: A&P Assessment and Plan (1) MARIAM (acute kidney injury): Code(s): N17.9 - Acute kidney failure, unspecified Status: Acute Assessment and Plan: * normal creatinine at baseline * etiology likely multiple issues: - suspect prerenal factors (diminished oral intake + diarrhea) - relative hypotension/altered hemodynamics - infection (possible UTI) - medications (lisinopril + HCTZ + Bactrim) * hold MIRANDA-I, diuretics; BP medications with parameters * renal ultrasound normal * urine electrolytes consistent with prerenal azotemia * hold IVFs after current bag complete * follow repeat labs and UOP (2) Hyperkalemia: Code(s): E87.5 - Hyperkalemia Status: Acute Assessment and Plan: * resolved * due to #1 in conjunction with MIRANDA-I use * kayexalate now and follow trend of K+ * MIRANDA-I and bactrim on hold (3) Hypotension: Code(s): I95.9 - Hypotension, unspecified Status: Acute Assessment and Plan: * BP doing better * holding some BP medications and others with parameters * follow hemodynamics (4) UTI (urinary tract infection): Code(s): N39.0 - Urinary tract infection, site not specified Status: Acute Assessment and Plan: * UA highly suggestive * follow urine culture * empirically on cipro at this time (5) History of left below knee amputation: Code(s): Z89.512 - Acquired absence of left leg below knee Status: Acute Assessment and Plan: * local wound care * PT/OT/rehab Will continue to follow. Subjective Date/time seen: 11/27/20 15:11 She appears to be doing much better per nursing; more awake and alert; no acute issues or concerns voiced; no other events/concerns overnight or earlier this AM. Exam Narrative: Exam Narrative: General: WD/WN AA female in NAD Heart: normal S1 and S2; no rub Lungs: clear to auscultation Abdomen: soft, nontender, nondistended, positive bowel sounds Extremities: no cyanosis or clubbing; no edema; s/p left BKA Skin: warm and dry Objective Data Vital Signs Vital Signs: Vital Signs Temp Pulse Resp BP Pulse Ox 11/27/20 14:00 36.1 C L 84 20 121/63 94 11/27/20 08:39 92 11/27/20 08:24 92 11/27/20 05:40 36.8 C 92 20 147/66 H 94 11/27/20 03:13 36.4 C 93 20 145/63 H 98 11/26/20 23:55 36.4 C 94 20 138/73 94 11/26/20 21:25 36.3 C L 86 22 H 100/60 97 Intake/Output Intake/Output: Intake & Output 11/24/20 11/25/20 11/26/20 11/27/20 23:59 23:59 23:59 23:59 Intake Total 1200 0443 838 0377 Output Total 250 Balance 950 3484 109 5921 Meds/Results Medications: Active Medications Generic Name Dose Route Start Last Admin Trade Name Freq PRN Reason Stop Dose Admin Acetaminophen 650 mg 11/24/20 13:52 11/27/20 08:36 Acetaminophen 325 Mg Tablet PO 650 mg Q4H PRN Administration Mild Pain (1-3) or Fever Albuterol 1 puff 11/17/20 01:51 Albuterol Sulfate (*Sp) Aerosol 1 Puff INHALATION Q4HRT PRN Shortness Of Breath Albuterol/Ipratropium 1 puff 11/17/20 04:40 Albuterol/Ipratropium (*Sp) 4 Gm Respimat INHALATION QIDRT
--- NOTE | 2020-11-27 15:11 | PM.PNNEP ---
Progress Note: A&P Assessment and Plan (1) MARIAM (acute kidney injury): Code(s): N17.9 - Acute kidney failure, unspecified Status: Acute Assessment and Plan: normal creatinine at baseline etiology likely multiple issues: - suspect prerenal factors (diminished oral intake + diarrhea) - relative hypotension/altered hemodynamics - infection (possible UTI) - medications (lisinopril + HCTZ + Bactrim) hold MIRANDA-I, diuretics; BP medications with parameters renal ultrasound normal urine electrolytes consistent with prerenal azotemia hold IVFs after current bag complete follow repeat labs and UOP (2) Hyperkalemia: Code(s): E87.5 - Hyperkalemia Status: Acute Assessment and Plan: resolved due to #1 in conjunction with MIRANDA-I use kayexalate now and follow trend of K+ MIRANDA-I and bactrim on hold (3) Hypotension: Code(s): I95.9 - Hypotension, unspecified Status: Acute Assessment and Plan: BP doing better holding some BP medications and others with parameters follow hemodynamics (4) UTI (urinary tract infection): Code(s): N39.0 - Urinary tract infection, site not specified Status: Acute Assessment and Plan: UA highly suggestive follow urine culture empirically on cipro at this time (5) History of left below knee amputation: Code(s): Z89.512 - Acquired absence of left leg below knee Status: Acute Assessment and Plan: local wound care PT/OT/rehab Will continue to follow. Subjective Date/time seen: 11/27/20 15:11 She appears to be doing much better per nursing; more awake and alert; no acute issues or concerns voiced; no other events/concerns overnight or earlier this AM. Exam Narrative: Exam Narrative: General: WD/WN AA female in NAD Heart: normal S1 and S2; no rub Lungs: clear to auscultation Abdomen: soft, nontender, nondistended, positive bowel sounds Extremities: no cyanosis or clubbing; no edema; s/p left BKA Skin: warm and dry Objective Data Vital Signs Vital Signs: Vital Signs Temp Pulse Resp BP Pulse Ox 11/27/20 14:00 36.1 C L 84 20 121/63 94 11/27/20 08:39 92 11/27/20 08:24 92 11/27/20 05:40 36.8 C 92 20 147/66 H 94 11/27/20 03:13 36.4 C 93 20 145/63 H 98 11/26/20 23:55 36.4 C 94 20 138/73 94 11/26/20 21:25 36.3 C L 86 22 H 100/60 97 Intake/Output Intake/Output: Intake & Output 11/24/20 11/25/20 11/26/20 11/27/20 23:59 23:59 23:59 23:59 Intake Total 1200 0883 827 0164 Output Total 250 Balance 950 4966 871 2574 Meds/Results Medications: Active Medications Generic Name Dose Route Start Last Admin Trade Name Freq PRN Reason Stop Dose Admin Acetaminophen 650 mg 11/24/20 13:52 11/27/20 08:36 Acetaminophen 325 Mg Tablet PO 650 mg Q4H PRN Administration Mild Pain (1-3) or Fever Albuterol 1 puff 11/17/20 01:51 Albuterol Sulfate (*Sp) Aerosol 1 Puff INHALATION Q4HRT PRN Shortness Of Breath Albuterol/Ipratropium 1 puff 11/17/20 04:40 Albuterol/Ipratropium (*Sp) 4 Gm Respimat INHALATION QIDRT PRN Shortness Of Breath Alteplase, Recombinant 2 mg 11/24/20 04:36 11/24/20 05:23 Alteplase 2 Mg Vial (Cathflo) IV PUSH 2 mg ONCE PRN Administration Line Occlusion Amitriptyline HCl 25 mg 11/16/20 21:40 11/26/20 21:24 Amitriptyline Hcl 25 Mg Tablet PO 25 mg HS YUKI Administration Amlodipine Besylate 10 mg 11/17/20 09:00 11/26/20 09:43 Amlodipine Besylate 5 Mg Tablet PO 10 mg DAILY YUKI Administration Aspirin 81 mg 11/17/20 09:00 11/27/20 08:22 Aspirin 81 Mg Enteric Tablet PO 81 mg DAILY YUKI Administration Atorvastatin Calcium 20 mg 11/16/20 21:40 11/26/20 21:25 Atorvastatin 20 Mg Tablet PO 20 mg HS YUKI Administration Benzocaine 1 lozenge 11/24/20 12:42 11/25/20 10:51
[2020-11-27 16:36] LABS: Glucose Point of Care 95 (65-105)
--- NOTE | 2020-11-27 16:45 | PC.NURSE ---
Pt blood sugar noted at 95. Her appetite has decreased this shift. Updated Dr Ascencio and he wanted scheduled insulin not given at supper time.
[2020-11-27] MEDS: CIPROFLOXACIN 250 MG TABLET PO (19:17)
[2020-11-27 20:59] LABS: Glucose Point of Care 163 (65-105)
[2020-11-27] MEDS: ATORVASTATIN 20 MG TABLET PO (22:08)
[2020-11-27] MEDS: AMITRIPTYLINE HCL 25 MG TABLET PO (22:08)
[2020-11-27] MEDS: INSULIN GLARGINE (*BKC) 100 UNITS/ML 10 UNITS SUB-Q (22:11)
[2020-11-27] MEDS: oxyCODONE HCL (*CRX) 5 MG TAB IR PO (22:14)
[2020-11-28] VITALS (7 sets, daily range): BP systolic 121–145; BP diastolic 62–75; PULSE 89–93; RESP 18–20; TEMP 36.7–37.1; O2SAT 94–98
[2020-11-28 04:41] LABS: Hematocrit 23.6 % (37.0-47.0); Hemoglobin 7.6 g/dL (12.0-15.0); Mean Corpuscular HGB Conc 32.2 g/dl (32-36); Mean Corpuscular Hemoglobin 27.8 pg (26-34); Mean Corpuscular Volume 86.4 fl (80-100); Mean Platelet Volume 8.8 fl (7.4-10.4); Platelet Count Result 211 k/mm3 (150-375); Red Blood Count 2.73 M/mm3 (4.2-5.4); Red Cell Distribution Width 14.8 % (11.5-14.5); White Blood Count 6.2 K/mm3 (4.5-10.0)
[2020-11-28 04:54] LABS: Albumin Level 2.8 g/dL (3.5-5.1); Anion Gap 5 mmol/L (8-16); Blood Urea Nitrogen 21 mg/dL (7-17); Calcium 7.9 mg/dL (8.4-10.2); Carbon Dioxide 31 mmol/L (22-30); Chloride 103 mmol/L (98-107); Estimated CRCL calculation 63 ml/min; Estimated Glomerular Filt Rate 58; Glucose 81 mg/dL (65-105); Phosphorus 5.1 mg/dL (2.5-4.5); Potassium 4.8 mmol/L (3.4-5.0); Sodium 139 mmol/L (137-145)
[2020-11-28] MEDS: METOCLOPRAMIDE HCL 5 MG TABLET PO ×4 (05:37→21:14)
[2020-11-28] MEDS: oxyCODONE HCL (*CRX) 5 MG TAB IR PO ×2 (08:54→18:10)
[2020-11-28] MEDS: INSULIN ASPART (*BKC) 100 UNITS/ML SUB-Q ×3 (08:57→18:05)
[2020-11-28] MEDS: MAGNESIUM OXIDE 400 MG TABLET 800 MG PO ×2 (08:57→18:03)
[2020-11-28] MEDS: ASPIRIN 81 MG ENTERIC TABLET PO (08:57)
[2020-11-28] MEDS: DIVALPROEX SODIUM ER 500 MG TAB.24H PO ×2 (08:58→18:03)
[2020-11-28] MEDS: carvediloL 6.25 MG TABLET PO ×2 (08:58→21:17)
[2020-11-28] MEDS: ISOSORBIDE MONONITRATE 60 MG TAB.ER.24H PO (08:59)
[2020-11-28] MEDS: METOPROLOL SUCCINATE EXT REL 50 MG TABCR PO (08:59)
[2020-11-28] MEDS: PANTOPRAZOLE 40 MG TABLET PO ×2 (08:59→18:04)
[2020-11-28] MEDS: OMEGA 3 POLYUNSAT FATTY ACIDS 1 GM CAP PO (08:59)
[2020-11-28] MEDS: FENOFIBRATE 160 MG TABLET PO (08:59)
[2020-11-28] MEDS: GABAPENTIN 300 MG CAPSULE 600 MG PO ×4 (08:59→21:14)
--- NOTE | 2020-11-28 11:04 | WPDNEURORHBP ---
Subjective Date/time seen: 11/28/20 11:04 acute kidney injury relative to hypotension in addition to the UTI Review of Systems Review of Systems: All systems reviewed & are unremarkable except as noted in HPI and below Exam Const: General: no acute distress, alert and awake Nutritional Appearance: average body habitus, well nourished and overweight Limitations: no limitations and physical limitations HENMT: Head: normocephalic Ears: hearing grossly normal bilaterally General nose exam: Normal external nose present Face and sinus: normal facial exam Eyes: General: appearance normal, both eyes and all related structures Alignment and Position: alignment normal Periorbital: periorbital findings normal Eyelids: eyelids normal Conjunctivae: conjunctivae normal Sclera: sclerae normal Cornea: corneas normal Neck: Neck: full ROM Resp: Effort & Inspection: able to speak in complete sentences Auscultation: clear to auscultation bilaterally Cardio: Jugular venous distension: no JVD Rate: regular rate Rhythm: regular rhythm GI: Auscultation: normal bowel sounds Neuro: General: patient oriented x3 Cognition (Neuro): normal cognition Gait exam (Neuro): Assisted gait required Motor exam (neuro): 5/5 motor strength present throughout Psych: Appearance: grossly normal Objective Data Vital Signs Vital Signs: Vital Signs - 24 hr 11/27/20 14:00 11/27/20 21:32 11/27/20 22:08 Temperature 36.1 C L 37.1 C Pulse Rate 84 99 104 H Respiratory Rate 20 22 H Blood Pressure 121/63 144/63 H Pulse Oximetry 94 93 11/28/20 05:50 11/28/20 08:58 11/28/20 08:59 Temperature 36.7 C Pulse Rate 89 89 89 Respiratory Rate 20 Blood Pressure 128/62 Pulse Oximetry 94 Intake/Output Intake/Output: Intake & Output 11/25/20 11/26/20 11/27/20 11/28/20 23:59 23:59 23:59 23:59 Intake Total 3108 836 3028 480 Balance 5251 933 3781 480 Meds/Results Medications: Active Medications Generic Name Dose Route Start Last Admin Trade Name Freq PRN Reason Stop Dose Admin Acetaminophen 650 mg 11/24/20 13:52 11/27/20 08:36 Acetaminophen 325 Mg Tablet PO 650 mg Q4H PRN Administration Mild Pain (1-3) or Fever Albuterol 1 puff 11/17/20 01:51 Albuterol Sulfate (*Sp) Aerosol 1 Puff INHALATION Q4HRT PRN Shortness Of Breath Albuterol/Ipratropium 1 puff 11/17/20 04:40 Albuterol/Ipratropium (*Sp) 4 Gm Respimat INHALATION QIDRT PRN Shortness Of Breath Alteplase, Recombinant 2 mg 11/24/20 04:36 11/24/20 05:23 Alteplase 2 Mg Vial (Cathflo) IV PUSH 2 mg ONCE PRN Administration Line Occlusion Amitriptyline HCl 25 mg 11/16/20 21:40 11/27/20 22:08 Amitriptyline Hcl 25 Mg Tablet PO 25 mg HS YUKI Administration Amlodipine Besylate 10 mg 11/17/20 09:00 11/26/20 09:43 Amlodipine Besylate 5 Mg Tablet PO 10 mg DAILY YUKI Administration Aspirin 81 mg 11/17/20 09:00 11/28/20 08:57 Aspirin 81 Mg Enteric Tablet PO 81 mg DAILY YUKI Administration Atorvastatin Calcium 20 mg 11/16/20 21:40 11/27/20 22:08 Atorvastatin 20 Mg Tablet PO 20 mg HS YUKI Administration Benzocaine 1 lozenge 11/24/20 12:42 11/25/20 10:51 Benzocaine/Menthol (*Bkc) 18 Ea Lozenge PO 1 lozenge PRN PRN Administration Sore Throat Carvedilol 6.25 mg 11/16/20 21:40 11/28/20 08:58 Carvedilol 6.25 Mg Tablet PO 6.25 mg Q12HR YUKI Administration Ciprofloxacin 250 mg 11/26/20 19:00 11/27/20 19:17 Ciprofloxacin 250 Mg Tablet PO 250 mg Q24H YUKI Administration Collagenase 1 applic 11/25/20 09:05 11/25/20 10:51 Collagenase Oint 30 Gm Tube TOPICAL 1 applic MoWeFr YUKI Administration Dextrose 12.5 gm 11/16/20 21:46 Dextrose 50% 25 Gm/50 Ml Syringe IV PUSH PRN PRN Hypoglycemia Protocol Diltiazem HCl 240 mg 11/17/20 09:00 11/28/20 08:59 Diltiazem Hcl Cd 240 Mg Cap.Er.24h PO 240 mg DAILY YUKI Administration
[2020-11-28 12:15] LABS: Glucose Point of Care 79 (65-105)
[2020-11-28] MEDS: COLLAGENASE OINT 30 GM TUBE 1 APPLIC TOPICAL (12:20)
--- NOTE | 2020-11-28 12:53 | PCDIET ---
Nutrition Follow-Up Complete: Nutrition Diagnosis: Inadequate oral intake related to constant nausea as evidenced by consumption of 25% or less of meals. Nutrition Goal: Patient to meet estimated nutritional needs. Goal in progress. Intakes have been variable over the past few days due to infection. Patient eating cheeseburger for lunch and reports taking Kye supplements consistently. No GI c/o. Diet is low potassium, diabetic with Kye BID. Recommend checking magnesium level and considering gradual liberalization of K+ in diet if level remains controlled. Last recorded weight is 103 kg. Recommend obtaining new weight. Bowel Motility: Last documented BM on 11/27/20. Labs Reviewed: Hgb (7.6), Hct (23.6), BUN (21), Cr (1.2), K (4.8), Alb (2.8), PO4 (5.1) Meds Noted: Norvasc, Elavil, Norvasc, Lipitor, Coreg, Cipro, Drisdol, Lantus, Fenofibrate, Lovaza, Hydrochlorothiazide, Novolog, Reglan, Toprol XL, Mag-Ox Additional Notes: Wound nurse removed wound vac today; dressing in place to left BKA site. Will continue to monitor with same goal. Nutrition Monitoring and Evaluation: Follow up in 5 days.
--- NOTE | 2020-11-28 15:49 | P.PNNP_ITS ---
Progress Note: A&P Assessment and Plan (1) MARIAM (acute kidney injury): Code(s): N17.9 - Acute kidney failure, unspecified Status: Acute Assessment and Plan: * normal creatinine at baseline * etiology likely multiple issues: - suspect prerenal factors (diminished oral intake + diarrhea) - relative hypotension/altered hemodynamics - infection (possible UTI) - medications (lisinopril + HCTZ + Bactrim) * renal ultrasound normal * urine electrolytes consistent with prerenal azotemia * off ivfs * creatinine is better. * follow repeat labs and UOP (2) Hyperkalemia: Code(s): E87.5 - Hyperkalemia Status: Acute Assessment and Plan: * resolved (3) Hypotension: Code(s): I95.9 - Hypotension, unspecified Status: Acute Assessment and Plan: * BP doing better * holding some BP medications and others with parameters * follow hemodynamics (4) UTI (urinary tract infection): Code(s): N39.0 - Urinary tract infection, site not specified Status: Acute Assessment and Plan: * UA highly suggestive * follow urine culture * empirically on cipro at this time (5) History of left below knee amputation: Code(s): Z89.512 - Acquired absence of left leg below knee Status: Acute Assessment and Plan: * local wound care * PT/OT/rehab Subjective Date/time seen: 11/28/20 15:49 Interval history: pt feels better. didn't feel well yesterday. eating better and slept okay last night. some edema in legs. did well with PTx. Review of Systems Cardiovascular: Cardiovascular: Reports no additional cardiovascular complai nts Respiratory: Respiratory: Reports no additional respiratory complaints Gastrointestinal: Gastrointestinal: Reports no additional gastrointestinal complaints Genitourinary: Genitourinary: Reports no additional female genitourinary complaints Exam Narrative: Exam Narrative: General: WD/WN AA female in NAD Heart: normal S1 and S2; no rub Lungs: clear to auscultation Abdomen: soft, nontender, nondistended, positive bowel sounds Extremities: no cyanosis or clubbing; 1+ bilateral edema; s/p left BKA Skin: warm and dry no rash Objective Data Vital Signs Vital Signs: Vital Signs - 24 hr 11/27/20 21:32 11/27/20 22:08 11/28/20 05:50 Temperature 37.1 C 36.7 C Pulse Rate 99 104 H 89 Respiratory Rate 22 H 20 Blood Pressure 144/63 H 128/62 Pulse Oximetry 93 94 11/28/20 08:58 11/28/20 08:59 11/28/20 14:00 Temperature 37.1 C Pulse Rate 89 89 90 Respiratory Rate 18 Blood Pressure 121/65 Pulse Oximetry 98 Intake/Output Intake/Output: Intake & Output 11/25/20 11/26/20 11/27/20 11/28/20 23:59 23:59 23:59 23:59 Intake Total 5617 285 1084 1200 Balance 5499 809 7262 1200 Meds/Results Medications: Active Medications Generic Name Dose Route Start Last Admin Trade Name Freq PRN Reason Stop Dose Admin Acetaminophen 650 mg 11/24/20 13:52 11/27/20 08:36 Acetaminophen 325 Mg Tablet PO 650 mg Q4H PRN Administration Mild Pain (1-3) or Fever
--- NOTE | 2020-11-28 15:49 | PM.PNNEP ---
Progress Note: A&P Assessment and Plan (1) MARIAM (acute kidney injury): Code(s): N17.9 - Acute kidney failure, unspecified Status: Acute Assessment and Plan: normal creatinine at baseline etiology likely multiple issues: - suspect prerenal factors (diminished oral intake + diarrhea) - relative hypotension/altered hemodynamics - infection (possible UTI) - medications (lisinopril + HCTZ + Bactrim) renal ultrasound normal urine electrolytes consistent with prerenal azotemia off ivfs creatinine is better. follow repeat labs and UOP (2) Hyperkalemia: Code(s): E87.5 - Hyperkalemia Status: Acute Assessment and Plan: resolved (3) Hypotension: Code(s): I95.9 - Hypotension, unspecified Status: Acute Assessment and Plan: BP doing better holding some BP medications and others with parameters follow hemodynamics (4) UTI (urinary tract infection): Code(s): N39.0 - Urinary tract infection, site not specified Status: Acute Assessment and Plan: UA highly suggestive follow urine culture empirically on cipro at this time (5) History of left below knee amputation: Code(s): Z89.512 - Acquired absence of left leg below knee Status: Acute Assessment and Plan: local wound care PT/OT/rehab Subjective Date/time seen: 11/28/20 15:49 Interval history: pt feels better. didn't feel well yesterday. eating better and slept okay last night. some edema in legs. did well with PTx. Review of Systems Cardiovascular: Cardiovascular: Reports no additional cardiovascular complaints Respiratory: Respiratory: Reports no additional respiratory complaints Gastrointestinal: Gastrointestinal: Reports no additional gastrointestinal complaints Genitourinary: Genitourinary: Reports no additional female genitourinary complaints Exam Narrative: Exam Narrative: General: WD/WN AA female in NAD Heart: normal S1 and S2; no rub Lungs: clear to auscultation Abdomen: soft, nontender, nondistended, positive bowel sounds Extremities: no cyanosis or clubbing; 1+ bilateral edema; s/p left BKA Skin: warm and dry no rash Objective Data Vital Signs Vital Signs: Vital Signs - 24 hr 11/27/20 21:32 11/27/20 22:08 11/28/20 05:50 Temperature 37.1 C 36.7 C Pulse Rate 99 104 H 89 Respiratory Rate 22 H 20 Blood Pressure 144/63 H 128/62 Pulse Oximetry 93 94 11/28/20 08:58 11/28/20 08:59 11/28/20 14:00 Temperature 37.1 C Pulse Rate 89 89 90 Respiratory Rate 18 Blood Pressure 121/65 Pulse Oximetry 98 Intake/Output Intake/Output: Intake & Output 11/25/20 11/26/20 11/27/20 11/28/20 23:59 23:59 23:59 23:59 Intake Total 5922 597 1436 1200 Balance 6450 669 7111 1200 Meds/Results Medications: Active Medications Generic Name Dose Route Start Last Admin Trade Name Freq PRN Reason Stop Dose Admin Acetaminophen 650 mg 11/24/20 13:52 11/27/20 08:36 Acetaminophen 325 Mg Tablet PO 650 mg Q4H PRN Administration Mild Pain (1-3) or Fever Albuterol 1 puff 11/17/20 01:51 Albuterol Sulfate (*Sp) Aerosol 1 Puff INHALATION Q4HRT PRN Shortness Of Breath Albuterol/Ipratropium 1 puff 11/17/20 04:40 Albuterol/Ipratropium (*Sp) 4 Gm Respimat INHALATION QIDRT PRN Shortness Of Breath Alteplase, Recombinant 2 mg 11/24/20 04:36 11/24/20 05:23 Alteplase 2 Mg Vial (Cathflo) IV PUSH 2 mg ONCE PRN Administration Line Occlusion Amitriptyline HCl 25 mg 11/16/20 21:40 11/27/20 22:08 Amitriptyline Hcl 25 Mg Tablet PO 25 mg HS YUKI Administration Amlodipine Besylate 10 mg 11/17/20 09:00 11/26/20 09:43 Amlodipine Besylate 5 Mg Tablet PO 10 mg DAILY YUKI Administration Aspirin 81 mg 11/17/20 09:00 11/28/20 08:57 Aspirin 81 Mg Enteric Tablet PO 81 mg DAILY YUKI Administrat
[2020-11-28 17:06] LABS: Glucose Point of Care 115 (65-105)
[2020-11-28] MEDS: CIPROFLOXACIN 250 MG TABLET PO (18:05)
[2020-11-28 20:52] LABS: Glucose Point of Care 134 (65-105)
[2020-11-28] MEDS: AMITRIPTYLINE HCL 25 MG TABLET PO (21:13)
[2020-11-28] MEDS: ATORVASTATIN 20 MG TABLET PO (21:13)
[2020-11-28] MEDS: INSULIN GLARGINE (*BKC) 100 UNITS/ML 10 UNITS SUB-Q (21:15)
[2020-11-29] MEDS: oxyCODONE HCL (*CRX) 5 MG TAB IR PO ×2 (00:19→10:11)
[2020-11-29] MEDS: METOCLOPRAMIDE HCL 5 MG TABLET PO ×4 (05:29→21:10)
[2020-11-29 06:00] VITALS: BP 135/72; PULSE 82; RESP 16; TEMP 36.6; O2SAT 97
[2020-11-29 06:53] LABS: Glucose Point of Care 86 (65-105)
[2020-11-29] MEDS: MAGNESIUM OXIDE 400 MG TABLET 800 MG PO ×2 (10:09→17:59)
[2020-11-29] MEDS: INSULIN ASPART (*BKC) 100 UNITS/ML SUB-Q ×2 (10:09→12:50)
[2020-11-29 10:15] VITALS: PULSE 82
[2020-11-29] MEDS: METOPROLOL SUCCINATE EXT REL 50 MG TABCR PO (10:15)
[2020-11-29] MEDS: GABAPENTIN 300 MG CAPSULE 600 MG PO ×4 (10:19→21:10)
[2020-11-29] MEDS: DIVALPROEX SODIUM ER 500 MG TAB.24H PO ×2 (10:19→17:58)
[2020-11-29] MEDS: ISOSORBIDE MONONITRATE 60 MG TAB.ER.24H PO (10:19)
[2020-11-29] MEDS: OMEGA 3 POLYUNSAT FATTY ACIDS 1 GM CAP PO (10:20)
[2020-11-29] MEDS: ASPIRIN 81 MG ENTERIC TABLET PO (10:20)
[2020-11-29] MEDS: carvediloL 6.25 MG TABLET PO ×2 (10:20→21:09)
[2020-11-29] MEDS: FENOFIBRATE 160 MG TABLET PO (10:21)
[2020-11-29] MEDS: PANTOPRAZOLE 40 MG TABLET PO ×2 (10:21→18:00)
--- NOTE | 2020-11-29 10:22 | PCPTNOTE ---
Sanam Mcclellan PT completed an inpatient rehab wheelchair evaluation on Delisa Calderon on 11/29/2020. The patient is unable to safely and independently ambulate household distances due to their current impairments. Their diagnosis is Left BKA and their impairments include decreased strength, decreased endurance, decreased range of motion, decreased balance, and lower extremity weakness. Delisa's weight bearing status is non weight-bearing as tolerated on left lower extremity. The patient demonstrates significant functional mobility limitations that impair their ability to participate in mobility-related activities of daily living (MRADLs), including toileting, feeding, dressing, grooming, and bathing in the customary locations in the home. These limitations cannot be sufficiently resolved by the use of an appropriately fitted cane or walker. It is recommended that the patient utilize a wheelchair for functional mobility within the home in order to facilitate optimal safety, independence and participation in all MRADL's and adequately access their home environment on a regular basis. The patient's home provides adequate access between rooms, maneuvering space, and surfaces to accommodate the recommended wheelchair. The use of a wheelchair for functional mobility is strongly recommended and the patient is receptive to using the wheelchair. The use of this wheelchair will significantly improve the patient's ability to participate in MRADLS and the patient will use it on a regular basis in the home. This will facilitate optimal safety, independence, and participation. The patient has demonstrated sufficient physical and mental capabilities needed to safely propel a manual wheelchair that is provided in the home during a typical day. Recommended Wheelchair Frame: standard Recommended Wheelchair Size: 18x18 Recommended Wheelchair Cushion: standard Wheelchair Leg Recommendations: swing away L residual limb support and R LE swing away leg rest - Anti-tippers are recommended due to patient demonstrating increased risk for falls. They would benefit from anti-tippers with added safety and stabilization. _Sanam Mcclellan DPT 11/29/20 Evaluating Therapist Date I agree with and certify that the above recommendation is medically necessary. Referring Physician Date I agree with and certify that the above recommendation is medically necessary. Referring Physician Date
[2020-11-29 12:18] LABS: Glucose Point of Care 78 (65-105)
--- NOTE | 2020-11-29 13:26 | PCNSR ---
On 11/29/20, the student, Yuliya Mccarty, provided care and completed [facility] documentation on this patient. I have reviewed the student's documentation and agree with the findings.
[2020-11-29 14:00] VITALS: BP 134/67; PULSE 88; RESP 20; TEMP 36.7; O2SAT 99
[2020-11-29] MEDS: oxyCODONE HCL (*CRX) 5 MG TAB IR 10 MG PO (14:28)
--- NOTE | 2020-11-29 15:20 | WPDNEURORHBP ---
Subjective Date/time seen: 11/29/20 15:20 status post left [id number] amputation with hypertension, diabetes mellitus ,sleep apnea ,and peripheral arterial disease in addition to atrial fibrillation, developed UTI with change in the mental status along with the pneumonia ,definitely feeling much better, seen by the mixing machine operator as well with acute renal injury secondary to prerenal fracture ,UA consistent with a prerenal azotemia, receiving Cipro 250 Q 24 hours and vital signs are stable Exam Const: General: cooperative, comfortable and no acute distress Nutritional Appearance: overweight Limitations: physical limitations Eyes: General: appearance normal, both eyes and all related structures Neck: Neck: full ROM Resp: Effort & Inspection: normal respiratory effort Auscultation: clear to auscultation bilaterally Cardio: Rate: regular rate GI: Auscultation: normal bowel sounds Neuro: General: patient oriented x3 Cranial nerves: Yes CN's II-XII intact bilaterally Cognition (Neuro): normal cognition Speech: normal speech Motor exam (neuro): 5/5 motor strength present throughout Deep tendon reflexes (DTR's): Right triceps reflex intensity grade: 1+, Left triceps reflex intensity grade: 1+, Rt Biceps (C5, C6): 1+, Left biceps reflex intensity grade: 1+, Right brachioradialis reflex intensity grade: 1+, Left brachioradialis reflex intensity grade: 1+, Right patellar reflex intensity grade: 1+ and Left patellar reflex intensity grade: 1+ Plantar Reflex Responses: downgoing: right Psych: Appearance: grossly normal Objective Data Vital Signs Vital Signs: Vital Signs - 24 hr 11/28/20 20:00 11/28/20 21:17 11/28/20 22:00 Temperature 37.1 C Pulse Rate 93 92 93 Respiratory Rate 18 18 Blood Pressure 145/75 H Pulse Oximetry 98 98 11/29/20 06:00 11/29/20 10:15 Temperature 36.6 C Pulse Rate 82 82 Respiratory Rate 16 Blood Pressure 135/72 Pulse Oximetry 97 Intake/Output Intake/Output: Intake & Output 11/26/20 11/27/20 11/28/20 11/29/20 23:59 23:59 23:59 23:59 Intake Total 360 2160 1680 720 Balance 360 2160 1680 720 Meds/Results Medications: Active Medications Generic Name Dose Route Start Last Admin Trade Name Freq PRN Reason Stop Dose Admin Acetaminophen 650 mg 02/25/21 13:52 11/27/20 08:36 Acetaminophen 325 Mg Tablet PO 650 mg Q4H PRN Administration Mild Pain (1-3) or Fever Albuterol 1 puff 11/17/20 01:51 Albuterol Sulfate (*Sp) Aerosol 1 Puff INHALATION Q4HRT PRN Shortness Of Breath Albuterol/Ipratropium 1 puff 11/17/20 04:40 Albuterol/Ipratropium (*Sp) 4 Gm Respimat INHALATION QIDRT PRN Shortness Of Breath Alteplase, Recombinant 2 mg 11/24/20 04:36 11/24/20 05:23 Alteplase 2 Mg Vial (Cathflo) IV PUSH 2 mg ONCE PRN Administration Line Occlusion Amitriptyline HCl 25 mg 11/16/20 21:40 11/28/20 21:13 Amitriptyline Hcl 25 Mg Tablet PO 25 mg HS YUKI Administration Amlodipine Besylate 10 mg 11/17/20 09:00 11/26/20 09:43 Amlodipine Besylate 5 Mg Tablet PO 10 mg DAILY YUKI Administration Aspirin 81 mg 11/17/20 09:00 11/29/20 10:20 Aspirin 81 Mg Enteric Tablet PO 81 mg DAILY YUKI Administration Atorvastatin Calcium 20 mg 11/16/20 21:40 11/28/20 21:13 Atorvastatin 20 Mg Tablet PO 20 mg HS YUKI Administration Benzocaine 1 lozenge 11/24/20 12:42 11/25/20 10:51 Benzocaine/Menthol (*Bkc) 18 Ea Lozenge PO 1 lozenge PRN PRN Administration Sore Throat Carvedilol 6.25 mg 11/16/20 21:40 11/29/20 10:20 Carvedilol 6.25 Mg Tablet PO 6.25 mg Q12HR YUKI Administration Ciprofloxacin 250 mg 11/26/20 19:00 11/28/20 18:05 Ciprofloxacin 250 Mg Tablet PO 250 mg Q24H YUKI Administration Collagenase 1 applic 11/25/20 09:05 11/28/20 12:20 Collagenase Oint 30 Gm Tube TOPICAL 1 applic MoWeFr YUKI Administration Dextrose 12.5 gm 11/16/20 21:46 Dextrose 50% 25 Gm
[2020-11-29 17:15] LABS: Glucose Point of Care 75 (65-105)
[2020-11-29] MEDS: CIPROFLOXACIN 250 MG TABLET PO (18:00)
[2020-11-29 21:09] VITALS: PULSE 89
[2020-11-29] MEDS: ATORVASTATIN 20 MG TABLET PO (21:09)
[2020-11-29] MEDS: AMITRIPTYLINE HCL 25 MG TABLET PO (21:09)
[2020-11-29] MEDS: ACETAMINOPHEN 325 MG TABLET 650 MG PO (21:12)
[2020-11-29] MEDS: INSULIN GLARGINE (*BKC) 100 UNITS/ML 10 UNITS SUB-Q (21:28)
[2020-11-29 22:00] VITALS: BP 116/69; PULSE 88; RESP 16; TEMP 37.4; O2SAT 98
[2020-11-29 23:03] LABS: Glucose Point of Care 113 (65-105)
[2020-11-30] VITALS (7 sets, daily range): BP systolic 102–136; BP diastolic 73–76; PULSE 82–97; RESP 16–22; TEMP 36.4–36.9; O2SAT 96–98
[2020-11-30] MEDS: METOCLOPRAMIDE HCL 5 MG TABLET PO ×4 (06:23→21:06)
[2020-11-30 06:35] LABS: Glucose Point of Care 185 (65-105)
[2020-11-30] MEDS: ASPIRIN 81 MG ENTERIC TABLET PO (09:08)
[2020-11-30] MEDS: ERGOCALCIFEROL 50,000 UNIT CAPSULE 50000 UNITS PO (09:08)
[2020-11-30] MEDS: MAGNESIUM OXIDE 400 MG TABLET 800 MG PO ×2 (09:09→17:39)
[2020-11-30] MEDS: FENOFIBRATE 160 MG TABLET PO (09:09)
[2020-11-30] MEDS: DIVALPROEX SODIUM ER 500 MG TAB.24H PO ×2 (09:09→17:39)
[2020-11-30] MEDS: OMEGA 3 POLYUNSAT FATTY ACIDS 1 GM CAP PO (09:09)
[2020-11-30] MEDS: ISOSORBIDE MONONITRATE 60 MG TAB.ER.24H PO (09:09)
[2020-11-30] MEDS: METOPROLOL SUCCINATE EXT REL 50 MG TABCR PO (09:09)
[2020-11-30] MEDS: carvediloL 6.25 MG TABLET PO ×2 (09:11→21:05)
[2020-11-30] MEDS: GABAPENTIN 300 MG CAPSULE 600 MG PO ×4 (09:12→21:05)
[2020-11-30] MEDS: PANTOPRAZOLE 40 MG TABLET PO ×2 (09:12→17:40)
[2020-11-30] MEDS: INSULIN ASPART (*BKC) 100 UNITS/ML SUB-Q ×3 (09:13→17:42)
[2020-11-30] MEDS: oxyCODONE HCL (*CRX) 5 MG TAB IR 10 MG PO ×3 (09:18→22:10)
[2020-11-30 12:06] LABS: Glucose Point of Care 162 (65-105)
--- NOTE | 2020-11-30 15:35 | PC.NURSE ---
Employee from [facility] was here to change stump dressing on patient. Patient tolerated well.
--- NOTE | 2020-11-30 16:47 | WPDNEURORHBP ---
Subjective Date/time seen: 11/30/20 16:47 is status post left [id number] amputation with hypertension, diabetes mellitus, sleep apnea, and peripheral arterial disease in addition to atrial fibrillation and recent treatment for the UTI Review of Systems Review of Systems: All systems reviewed & are unremarkable except as noted in HPI and below Exam Const: General: cooperative, comfortable and no acute distress Nutritional Appearance: overweight Limitations: physical limitations HENMT: Head: normocephalic Ears: hearing grossly normal bilaterally General nose exam: Normal external nose present Face and sinus: normal facial exam Mouth: Yes Normal oral and palatal mucosa present Eyes: General: appearance normal, both eyes and all related structures Alignment and Position: alignment normal Periorbital: periorbital findings normal Eyelids: eyelids normal Conjunctivae: conjunctivae normal Sclera: sclerae normal Cornea: corneas normal Pupils: Equal, round and reactive pupils present EOM: EOMs intact bilaterally Neck: Neck: full ROM and no lymphadenopathy Resp: Effort & Inspection: normal respiratory effort Auscultation: clear to auscultation bilaterally Cardio: Rate: regular rate GI: Auscultation: normal bowel sounds Neuro: General: patient oriented x3 Cranial nerves: Yes CN's II-XII intact bilaterally Cognition (Neuro): normal cognition Gait exam (Neuro): Assisted gait required Motor exam (neuro): 5/5 motor strength present throughout Coordination: [id number] test normal Psych: Appearance: grossly normal Objective Data Vital Signs Vital Signs: Vital Signs - 24 hr 11/29/20 21:09 11/29/20 22:00 11/30/20 06:00 Temperature 37.4 C 36.4 C L Pulse Rate 89 88 84 Respiratory Rate 16 16 Blood Pressure 116/69 102/74 Pulse Oximetry 98 97 11/30/20 08:00 11/30/20 09:09 11/30/20 09:11 Temperature Pulse Rate 84 84 84 Respiratory Rate 16 Blood Pressure Pulse Oximetry 97 11/30/20 14:00 Temperature 36.9 C Pulse Rate 82 Respiratory Rate 20 Blood Pressure 110/76 Pulse Oximetry 98 Intake/Output Intake/Output: Intake & Output 11/27/20 11/28/20 11/29/20 11/30/20 23:59 23:59 23:59 23:59 Intake Total 2160 1680 1200 720 Balance 2160 1680 1200 720 Meds/Results Medications: Active Medications Generic Name Dose Route Start Last Admin Trade Name Freq PRN Reason Stop Dose Admin Acetaminophen 650 mg 11/24/20 13:52 11/29/20 21:12 Acetaminophen 325 Mg Tablet PO 650 mg Q4H PRN Administration Mild Pain (1-3) or Fever Albuterol 1 puff 11/17/20 01:51 Albuterol Sulfate (*Sp) Aerosol 1 Puff INHALATION Q4HRT PRN Shortness Of Breath Albuterol/Ipratropium 1 puff 11/17/20 04:40 Albuterol/Ipratropium (*Sp) 4 Gm Respimat INHALATION QIDRT PRN Shortness Of Breath Alteplase, Recombinant 2 mg 11/24/20 04:36 11/24/20 05:23 Alteplase 2 Mg Vial (Cathflo) IV PUSH 2 mg ONCE PRN Administration Line Occlusion Amitriptyline HCl 25 mg 11/16/20 21:40 11/29/20 21:09 Amitriptyline Hcl 25 Mg Tablet PO 25 mg HS YUKI Administration Amlodipine Besylate 10 mg 11/17/20 09:00 11/26/20 09:43 Amlodipine Besylate 5 Mg Tablet PO 10 mg DAILY YUKI Administration Aspirin 81 mg 11/17/20 09:00 11/30/20 09:08 Aspirin 81 Mg Enteric Tablet PO 81 mg DAILY YUKI Administration Atorvastatin Calcium 20 mg 11/16/20 21:40 11/29/20 21:09 Atorvastatin 20 Mg Tablet PO 20 mg HS YUKI Administration Benzocaine 1 lozenge 11/24/20 12:42 11/25/20 10:51 Benzocaine/Menthol (*Bkc) 18 Ea Lozenge PO 1 lozenge PRN PRN Administration Sore Throat Carvedilol 6.25 mg 11/16/20 21:40 11/30/20 09:11 Carvedilol 6.25 Mg Tablet PO 6.25 mg Q12HR YUKI Administration Ciprofloxacin 250 mg 11/26/20 19:00 11/29/20 18:00 Ciprofloxacin 250 Mg Tablet PO 250 mg Q24H YUKI Administration Collagenase 1 applic 11/25/20 09:0
[2020-11-30 16:51] LABS: Glucose Point of Care 118 (65-105)
[2020-11-30] MEDS: CIPROFLOXACIN 250 MG TABLET PO (17:40)
[2020-11-30] MEDS: ATORVASTATIN 20 MG TABLET PO (21:05)
[2020-11-30] MEDS: AMITRIPTYLINE HCL 25 MG TABLET PO (21:05)
[2020-11-30] MEDS: INSULIN GLARGINE (*BKC) 100 UNITS/ML 10 UNITS SUB-Q (21:10)
[2020-11-30 21:24] LABS: Glucose Point of Care 151 (65-105)
[2020-12-01] MEDS: MELATONIN 5 MG TABLET 10 MG PO (03:18)
[2020-12-01 05:39] LABS: Basophils Absolute Auto 0.1 K/mm3 (0.0-0.1); Basophils Percent Auto 0.6 % (0.2-1.2); Eosinophils Absolute Auto 0.2 K/mm3 (0-0.3); Eosinophils Percent Auto 2.9 % (0-4.4); Hematocrit 24.5 % (37.0-47.0); Hemoglobin 7.9 g/dL (12.0-15.0); Immature Granulocyte Absolute 0.28 K/mm3 (0.00-0.031); Immature Granulocyte Percent A 3.5 % (0-0.5); Lymphocytes Absolute Auto 1.86 K/mm3 (0.9-3.2); Lymphocytes Percent Auto 23.2 % (18.3-44.2); Mean Corpuscular HGB Conc 32.2 g/dl (32-36); Mean Corpuscular Hemoglobin 28.1 pg (26-34); Mean Corpuscular Volume 87.2 fl (80-100); Mean Platelet Volume 9.1 fl (7.4-10.4); Monocytes Absolute Auto 1.5 K/mm3 (0.1-0.6); Monocytes Percent Auto 18.1 % (2.6-8.5); Neutrophils Absolute Auto 4.2 K/mm3 (1.3-6.7); Neutrophils Percent Auto 51.7 % (45.5-73.1); Platelet Count Result 217 k/mm3 (150-375); Red Blood Count 2.81 M/mm3 (4.2-5.4); Red Cell Distribution Width 14.7 % (11.5-14.5)
[2020-12-01 05:40] VITALS: BP 123/69; PULSE 87; RESP 18; TEMP 36.3; O2SAT 97
[2020-12-01 06:01] LABS: Alanine Aminotransferase 8 U/L (4-35); Alkaline Phosphatase 63 U/L (38-126); Anion Gap 5 mmol/L (8-16); Aspartate Amino Transferase 15 U/L (14-36); Bilirubin,Total 0.1 mg/dL (0.2-1.3); Blood Urea Nitrogen 12 mg/dL (7-17); Carbon Dioxide 27 mmol/L (22-30); Chloride 104 mmol/L (98-107); Estimated CRCL calculation 83 ml/min; Estimated Glomerular Filt Rate > 60; Glucose 161 mg/dL (65-105); Phosphorus 4.5 mg/dL (2.5-4.5); Potassium 4.3 mmol/L (3.4-5.0); Sodium 136 mmol/L (137-145)
[2020-12-01] MEDS: METOCLOPRAMIDE HCL 5 MG TABLET PO ×2 (06:26→12:02)
[2020-12-01 06:41] LABS: Glucose Point of Care 130 (65-105)
[2020-12-01 08:46] VITALS: PULSE 87
[2020-12-01] MEDS: MAGNESIUM OXIDE 400 MG TABLET 800 MG PO (08:46)
[2020-12-01] MEDS: carvediloL 6.25 MG TABLET PO (08:46)
[2020-12-01] MEDS: ISOSORBIDE MONONITRATE 60 MG TAB.ER.24H PO (08:46)
[2020-12-01] MEDS: GABAPENTIN 300 MG CAPSULE 600 MG PO ×2 (08:46→12:02)
[2020-12-01] MEDS: DIVALPROEX SODIUM ER 500 MG TAB.24H PO (08:46)
[2020-12-01 08:47] VITALS: PULSE 87
[2020-12-01] MEDS: METOPROLOL SUCCINATE EXT REL 50 MG TABCR PO (08:47)
[2020-12-01] MEDS: PANTOPRAZOLE 40 MG TABLET PO (08:47)
[2020-12-01] MEDS: OMEGA 3 POLYUNSAT FATTY ACIDS 1 GM CAP PO (08:47)
[2020-12-01] MEDS: ASPIRIN 81 MG ENTERIC TABLET PO (08:47)
[2020-12-01] MEDS: FENOFIBRATE 160 MG TABLET PO (08:47)
[2020-12-01] MEDS: INSULIN ASPART (*BKC) 100 UNITS/ML SUB-Q ×2 (08:52→12:04)
[2020-12-01] MEDS: oxyCODONE HCL (*CRX) 5 MG TAB IR 10 MG PO (12:02)
[2020-12-01 12:35] LABS: Glucose Point of Care 130 (65-105)
--- NOTE | 2020-12-01 12:55 | PCNFU ---
Nutrition Follow-Up Complete: Inadequate oral intake related to constant nausea as evidenced by consumption of 25% or less of meals. Goal: Patient to meet estimated nutritional needs. Patient is meeting current goal. No new goal at this time. Pt current nutrition is low potassium diet and diabetic consistent carbohydrate diet. Last recorded weight is 103 kg. Recommend re-weighing patient prior to discharge. Bowel Motility: + BM 11/28 Labs Reviewed: Hgb 7.9, Hct 24.5, Alb 3.0, Na 136, Glu 161 Meds Noted: Albuterol, Norvasc, Lipitor, Coreg, Colace, Drisdol, Lovaza, Protonix, Mag-ox, Prinivil, Imdur, Lantus, Novolog, Neurontin, Lorazepam Additional Notes: Spoke with patient and her family today. She is doing much better and is discharging today, 12/01. She reports having a great appetite consuming 70-100% of meals. Wound vac to left groin. Could liberalize to just diabetic diet due to normal potassium levels. Monitor patient's labs, medications, weight, and oral intake every 5 days.
--- NOTE | 2020-12-01 13:16 | PCNSR ---
On 12/01/20, the student, Yuliya Mccarty, provided care and completed [facility] documentation on this patient. I have reviewed the student's documentation and agree with the findings.
[2020-12-01 15:42] LABS: Chloride Rand Ur <20 mmol/L (32-290); Creatinine Random Urine 201 mg/dL (20-275)
--- NOTE | 2020-12-03 10:16 | PM.DS ---
DS: Admitting Diagnosis Admitting Diagnosis Admitting Diagnosis: amputation of lower extremity with etiological diagnosis of gangrene of the toes of the left foot in addition to multiple comorbid conditions DS: Summary Hospital Course Hospital Course: gradual improvement becoming more independent with the day-to-day activities as she was admitted for left [id number] amputation course was slightly complicated because of UTI when she was treated accordingly with nephrology consultation Time Spent with Patient Time attestation: ADMISSION FUNCTION: 50 years old right-handed female admitted to rehab floor with the primary rehab impairment category of amputation of left lower extremity and the etiological diagnosis of gangrene of the toes of the left foot in addition to the comorbid conditions of 1. Hypertension 2. Diabetes mellitus 3. Obstructive sleep apnea 4. Peripheral arterial disease 5. Atrial fibrillation 6. Status post cardiac catheterization with stenting of the coronary artery 7. DVT 8. Hyperlipidemia 9. COPD 10. Rheumatoid arthritis 11. Bronchial asthma 12. Peripheral neuropathy and 13. Gastritis. At the time of admission her level of function was as follows. Eating independent Oral Care dependent Toileting Hygiene substantial Shower/Bathing dependent Upper Body Dressing supervision Lower Body Dressing dependent Donning/Aiken Footwear supervision Rolling Left and Right independent Sit to Lying supervision Lying to Sitting supervision Sit to Stand unable Bed to Chair Transfers unable Toilet Transfers unable Car Transfers unable Walking 10' unable Walking 50' with Two Turns unable Walking 150' unable Curb or Step unable 4 Steps unable 12 Steps unable Picking Up Object under [Wheelchair Mobility 50'] unable [Wheelchair Mobility 150'] unable GOALS: Eating [INDEPENDENT] Oral Care [INDEPENDENT] Toileting Hygiene supervision Shower/Bathing set up Upper Body Dressing [INDEPENDENT] Lower Body Dressing set up Donning/Aiken Footwear [INDEPENDENT] Rolling Left and Right [INDEPENDENT] Sit to Lying [INDEPENDENT] Lying to Sitting [INDEPENDENT] Sit to Stand partial assistance Bed to Chair Transfers [INDEPENDENT] Toilet Transfers supervision Car Transfers [INDEPENDENT] Walking 10' substantial Walking 50' with Two Turns not appy Walking 150' not applicable Curb or Step not applicable 4 Steps not applicable 12 Steps not Apley Picking Up Object partial assist [Wheelchair Mobility 50'] [INDEPENDENT] [Wheelchair Mobility 150'] [INDEPENDENT] DISCHARGE PERFORMANCE: Eating [INDEPENDENT] Oral Care [INDEPENDENT] Toileting Hygiene [INDEPENDENT] Shower/Bathing [INDEPENDENT] Upper Body Dressing [INDEPENDENT] Lower Body Dressing [INDEPENDENT] Donning/Aiken Footwear [INDEPENDENT] Rolling Left and Right [INDEPENDENT] Sit to Lying [INDEPENDENT] Lying to Sitting [INDEPENDENT] Sit to Stand partial front end assistant Bed to Chair Transfers [INDEPENDENT] Toilet Transfers [INDEPENDENT] Car Transfers [INDEPENDENT] Walking 10' unable Walking 50' with Two Turns unable Walking 150' unable Curb or Step unable 4 Steps unable 12 Steps unable Picking Up Object unable [Wheelchair Mobility 50'] [INDEPENDENT] [Wheelchair Mobility 150'] [INDEPENDENT] # during the entire hospitalization patient remained actively involved the physical therapy and occupational therapy. At 1 time her course was complicated by the urinary tract infection resulting in the complaints of generalized weakness. Nephrology consultation was obtained with Dr Arceo and Dr. Farr. her problem was attributed to acute kidney failure secondary to acute kidney injury again says prerenal in etiology with complicating factor of UTI. at the time of discharge her general physical examination was normal and so as the neurological examination, vital signs were stable with temp of 36.3? pulse 87 respiration 18 blood pressure 123/69 supine and her last lab revealed WBC 8000 hem
== END 2020-12-01 13:30 | disposition home health service (06) | DRG 560 ==
PROVIDERS: Internal Medicine Nephrology; Admitting Provider Psychiatry & Neurology Neurology; PCP Internal Medicine; Visit Provider Psychiatry & Neurology Neurology
DX: Z47.81 Encounter for orthopedic aftercare following surgical amputation (principal); N39.0 Urinary tract infection, site not specified; N17.9 Acute kidney failure, unspecified; Z89.512 Acquired absence of left leg below knee; B96.20 Unspecified Escherichia coli [E. coli] as the cause of diseases classified elsewhere; E11.65 Type 2 diabetes mellitus with hyperglycemia; E11.51 Type 2 diabetes mellitus with diabetic peripheral angiopathy without gangrene; E11.42 Type 2 diabetes mellitus with diabetic polyneuropathy; E78.5 Hyperlipidemia, unspecified; G47.33 Obstructive sleep apnea (adult) (pediatric); I10 Essential (primary) hypertension; I48.91 Unspecified atrial fibrillation; I25.2 Old myocardial infarction; J44.9 Chronic obstructive pulmonary disease, unspecified; M06.9 Rheumatoid arthritis, unspecified; Z85.41 Personal history of malignant neoplasm of cervix uteri; Z95.5 Presence of coronary angioplasty implant and graft; Z86.718 Personal history of other venous thrombosis and embolism; Z86.73 Personal history of transient ischemic attack (TIA), and cerebral infarction without residual deficits; Z79.4 Long term (current) use of insulin
CPT/HCPCS: 36415; 71045; 71046; 76775; 80048; 80053; 80069; 81001; 81050; 82436; 82570; 82948; 83036; 83735; 84156; 84300; 85025; 85027; 85999; 87040; 87045; 87046; 87070; 87086; 87427; 97110; 97161; 97166; 97530; 97535; 97542; A9270; J0696; J1815; J2765; J2997; J7030

== ENCOUNTER 2021-12-05 11:30 | Outpatient (RCR) | payer OTHER, SELFPAY ==
--- NOTE | 2021-11-29 15:43 | PTOPEVAL ---
PHYSICAL THERAPY INITIAL EVALUATION. Thank you for referring Delisa Calderon to [facility].? The patient is scheduled to be seen for therapy?2x/week for 4 weeks. Please review, sign, date and return this plan of care AGAPITO. I agree with and certify that the following plan of care is medically necessary. Referring Physician Date Attending Provider: PHYSICIAN NOT ON STAFF *PT Outpatient Evaluation Start: 11/29/21 Evaluation Information Diagnosis L BKA Subjective Information Delisa presents to therapy Query Text:As Reported By Patient/ today in a manual wheelchair Family and with her prosthesis donned. 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 By 2019 she had a staph infection from the graph, and her foot became gangrene. On 11/05/20 she had a BKA and was at [facility] for 2 weeks of rehab after her amputation. She states increased healing time on her residual limb and had 2 spots that took until Jul to heal. She received her prosthetic limb 2021. Pt states she can walk with a walker without the use of her prosthesis. She states she is trying to get use to being able to use her L leg again. She reports she has practiced ambulating with her prosthesis but is fearful of falling. Pain Assessment Left Knee(s) Reported Pain Level 5 Pain Description Aching,With Movement Pain Frequency Intermittent Pain Aggravating Factors Walking,Weight Bearing/ Standing Lower Extremity Range of Motion Gross Lower Extremity Range of Motion Knee flexion WNL Comments Knee extension - 28 degrees Lower Extremity Muscle Strength Testing General Lower Extremity Strength Gross Lower Extremity Strength Grossly 4/5 Did not test hip strength this date R SLS - 9 sec L SLS - 0 sec Palpation Assessment Palpation Observed the pt donning and
--- NOTE | 2021-12-05 11:52 | PCPTNOTE ---
Patient called & cancelled scheduled appointment this date due to lack of transportation.
--- NOTE | 2021-12-07 08:49 | PCPTNOTE ---
Patient came in reporting that her foot had twisted on her prosthesis, when I picked up the prosthesis to look it, the foot fell off. Cancelled her scheduled appointment at this time, and sent her over to [facility] [employer] [employer] to have it fixed.
--- NOTE | 2021-12-12 12:12 | PCPTNOTE ---
Patient did not show up for scheduled appointment this date. Called and left voice mail about missed appointment. Reminded of upcoming appointment on 12/15/21 @10:45a. This is Pt's first N/S.
--- NOTE | 2021-12-15 11:22 | PCPTNOTE ---
Patient did not show up for scheduled appointment this date. Called unable to leave voicemail due to mail box being full. This is Pt's 2nd N/S.
--- NOTE | 2021-12-19 11:09 | PCPTNOTE ---
Patient did not show up for scheduled appointment this date. Called, unable to leave voicemail due to mailbox being full. Was informed by executive legal secretary, Pt called back on 12/15/21 and informed the executive legal secretary, her prosthetic foot broke again and was waiting for new foot to arrive on 12/18/21. This is Pt's 3rd N/S. Informed PT.
--- NOTE | 2021-12-22 12:23 | PCPTNOTE ---
Patient no showed to appointment this date. Unable to leave voicemail at this time due to mail box being full.
--- NOTE | 2021-12-22 12:34 | PCPTNOTE ---
Attending Provider: PHYSICIAN NOT ON STAFF Patient:Delisa Calderon Date of :1970 Patient has not returned for any further treatments since 11/29/2021, therefore she will be discharged at this time. Patient?s initial visit was on 11/29/2021 14:00 and she had a total of 1 visits, she cancelled twice and has no showed 4 times. She called for her first visit and said her prosthesis broke. Since then the office has not been able to contact her as her voicemail is full. She will be discharged at this time per attendance policy. The goals have been not met. Thank you for referring this patient to [facility]. Please review, sign, date and return this discharge summary AGAPITO. I have been updated about the patient's current status and I agree with discharge from the above service at this time. Referring Physician Date
== END 2021-12-25 09:14 | disposition home or self-care (01) ==
LOC: ANHPT 11:30
PROVIDERS: PCP Internal Medicine
DX: Z47.81 Encounter for orthopedic aftercare following surgical amputation (principal); I74.5 Embolism and thrombosis of iliac artery; E78.2 Mixed hyperlipidemia; Z89.512 Acquired absence of left leg below knee
CPT/HCPCS: 97161; 97761